=== PATIENT | female | born 1975 | race Caucasian/White ===

== ENCOUNTER 2024-10-09 10:19 | Outpatient (CLI) | payer MEDICAID, SELFPAY ==
--- OUTSIDE RECORDS SUMMARY | 2024-10-09 10:22 | XMS_ITS | Clinical Summary ---
Author Organization Healthcare Address [address] [place] [address] Care Team Providers Care Sales Systems Engineer Name Role Phone Juanpablo Wynn MD Primary Care Provider [phone] Allergies No known active allergies Medications amitriptyline (Elavil) 25 MG tablet Take 1 tablet (25 mg) by mouth 1 (one) time each day. 01/27/2024 Active cetirizine (ZyrTEC) 10 MG tablet Take 1 tablet (10 mg) by mouth 1 (one) time each day. 01/27/2024 Active Family History Medical History Relation Name Comments Cataracts Mother Relation Name Status Comments Mother Social History Tobacco Use Types Packs/Day Years Used Date Smoking Tobacco: Former Cigarettes 0.3 32 1 0 - 2021 Passive Smoke Exposure: Past Smokeless Tobacco: Never Tobacco Cessation:Counseling Given: Not Answered Alcohol Use Standard Drinks/Week Comments Yes 0 (1 standard drink = 0.6 oz pur e alcohol) Comments Unknown Sex and Gender Information Value Date Recorded Sex Assigned at Not on file Legal Sex Female 8:11 PM EDT Gender Identity Not on file Sexual Orientation Not on file Last Filed Vital Signs Vital Sign Reading Time Taken Comments Blood Pressure 122/85 01/09/2018 1:30 PM EDT Pulse 67 01/09/2018 1:30 PM EDT Temperature 36.9 C (98.5 F) 01/09/2018 1:30 PM EDT Respiratory Rate - - Oxygen Saturation - - Inhaled Oxygen Concentration - - Weight 74.6 kg (164 lb 7.4 oz) 01/09/2018 1:27 P M EDT Height 165.1 cm (5' 5 ) 01/09/2018 1:27 PM EDT Body Mass Index 27.37 01/09/2018 1:27 PM EDT Plan of Treatment Health Maintenance Due Date Last Done Comments [facility]-Depression Screening 1975 [facility]-HIV Screening 1975 [facility]-Infant/Child/Adol SDOH Screenings 1975 [facility]- SDOH Screenings 1993 [facility]-Adult SDOH Screenings 1993 [facility]-DTaP,Tdap,and Td Vaccine s (1 - Tdap) 1994 [facility]-Hepatitis B Vaccines (1 of 3 - 19+ 3-dose series) 1994 [facility]-Pap Smear 12/26/1998 12/27/1995 [facility]-Cervical Cancer Screening 2005 [facility]-HPV/Cotest 2005 12/27/1995 CT Colonography 2020 Colonoscopy 2020 FIT-DNA 2020 FIT 2020 FOBT 2020 Sigmoidoscopy 2020 [facility]-Colorectal Cancer Screening 2020 [id number] Vaccine (1 - 20 24-25 season) 2023 [facility]-Influenza Vaccine (Seaso n Ended) 2024 [facility]-Zoster Vaccines (1 of 2) 2025 [facility]-Hepatitis C Screening Completed 12/27/2021 HPV Vaccines Aged Out No longer eligi ble based on patient's age to complete this topic [facility]-HIB Vaccines Aged Out No longer e ligible based on patient's age to complete this topic [facility]-Hepatitis A Vaccines Aged Out No longer eligible based on patient's age to complete this topic [facility]-IPV Vaccines Aged Out No longer e ligible based on patient's age to complete this topic [facility]-Pneumococcal Vaccine: Pediatrics (0 to 5 Years) and At-Risk Patients (6 to 49 Years) Aged Out No long er eligible based on patient's age to complete this topic [facility]-Rotavirus Vaccines Aged Out No lo nger eligible based on patient's age to complete this topic Procedures Procedure Name Priority Date/Time Associated Diagnosis Comments CYTO DATA CONVERSION Routine 12/27/1995 12:00 AM EDT from Last 3 Months or Most Recently Relevant to Health Maintenance Results * Cytology (12/27/1995 12:00 AM EDT) 12/27/1995 12/31/1995 Narrative SUNQUEST - 01/03/1996 12:00 AM EDT [facility] MR #: [id number] [facility] YENNY DICK. 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 SATISFACTORY FOR INTERPRETATION. Electronically Signed Out By Melissa Galo ALEXANDRA Dorantes (ASCP) No Signature Required Cervical cytology is a screening test primarily for squamous cancers and precursors and has associated false negative and positive results. New technologies such as liquid based sampling may decrease but will not eliminate all false negative results. Regular screening and follow-up of unexplained clinical signs and symptoms are recommended to minimize false negative results. Please see the ASCCP website (www.asccp.org) for followup recommendations. If HPV testing was requested, correlation with the results is suggested (please call Microbiology at [phone] for results). CLINICAL INFORMATION: Menstrual History: {Not Provided} Date of Last Menstrual Period: {Not Provided} SPECIMEN DESCRIPTION: A: CERVICAL/VAGINAL SMEAR, PAP ICD: F: {Not Entered} SNOMED CODES: 1; [id number] In cases where a pathologist has signed out the report, the service has been rendered in part by a resident. The signing pathologist has performed and is responsible for the reported pathologic evaluation. us Historical Provider MD LAB PATHOLOGY ORDERABLES Final Result SUNQUEST from Last 3 Months or Most Recently Relevant to Health Maintenance Insurance [employer] Care Teams Sales Systems Engineer Relationship Specialty Start Date End Date Juanpablo Wynn MD [address] [address] PCP - General 09/09/20
--- OUTSIDE RECORDS SUMMARY | 2024-10-09 10:22 | XMS_ITS | Clinical Summary ---
Author Organization [facility] Address [address] [place] [id number] Phone CareEverywhereSuppor t@e|[email or web address] Care Team Providers Care Backup Administrator Name Role Phone Juanpablo Wynn MD Primary Care Provider [phone] Allergies No known active allergies Medications acetaminophen (TYLENOL) 325 MG tablet Take by mouth every 6 (six) hours if needed. Active cyclobenzaprine (FLEXERIL) 10 MG tabletIndicatio ns:Trapezius strain, right, subsequent encounter Take one half or one tablet by mouth at bedtime as needed for muscle spasm 20 tablet 09/19/2021 Active Active Problems No known active problems Social History Tobacco Use Types Packs/Day Years Used Date Smoking Tobacco: Every Day Cigarettes E-Cigarettes Smokeless Tobacco: Never Intimate Partner Violence Answer Date R ecorded Insults You Not on file 08/13/2020 Threatens You Not on file 08/13/2020 Screams at You Not on file 08/13/2020 Physically Hurt Not on file 08/13/2020 Intimate Partner Violence Score Not on file 08/13/2020 Depression Answer Date Recorded PHQ Total Score Not on file 12/02/2023 Stress Answer Date Recorded Stress in your Life 0 06/08/2020 Dealing with Stress Not on file 06/08/2020 Comments No Sex and Gender Information Value Date Recorded Sex Assigned at Not on file Legal Sex Female 3:35 PM USER EXPERIENCE ARCHITECT Gender Identity Not on file Sexual Orientation Not on file Last Filed Vital Signs Vital Sign Reading Time Taken Comments Blood Pressure 122/81 12/06/2021 7:02 PM EDT Pulse 62 12/06/2021 7:02 PM EDT Temperature 35.6 C (96.1 F) 12/06/2021 7:02 PM EDT Respiratory Rate 18 12/06/2021 7:02 PM EDT Oxygen Saturation 98% 12/06/2021 7:02 PM EDT Inhaled Oxygen Concentration - - Weight 77.3 kg (170 lb 6.4 oz) 10/25/2021 7:10 P M EDT Height 169 cm (5' 6.54 ) 10/25/2021 7:10 PM EDT Body Mass Index 27.06 10/25/2021 7:10 PM EDT Plan of Treatment Health Maintenance Due Date Last Done Comments Dental Cleaning/Exam 1975 Cervical Cancer Screening 1991 Hepatitis B Immunization (1 of 3 - 19+ 3-dose series) 1994 Tetanus Diphtheria and Pertu ssis Immunization (1 - Tdap) 1994 Breast Cancer Screening 2005 Colorectal Cancer Screening 2005 Covid-19 Immunization (1 - 2 -25 season) 2023 Influenza Immunization (Seas on Ended) 2024 HIB Immunization Aged Out No longer e ligible based on patient's age to complete this topic HPV Immunization Aged Out No longer e ligible based on patient's age to complete this topic Hepatitis A Immunization Aged Out No longer eligible based on patient's age to complete this topic Pneumococcal: Ped (0 to 5 Yr s) and At-Risk Member (6 to 64 Yrs) Aged Out No longer e ligible based on patient's age to complete this topic Polio Immunization Aged Out No longer eligible based on patient's age to complete this topic Insurance OPT OUT NO COPAY NB Care Teams Backup Administrator Relationship Specialty Start Date End Date Juanpablo Wynn MD [facility] [place] [address] PCP - General Internal Medicine 10/21/20"
--- NOTE | 2024-10-09 10:30 | MR_ITS ---
APPROVED REPORT Screw Machine Set Up Operator Tool: CLINICAL INDICATION Subaortic membrane evaluation vs. LVOT obstruction TECHNIQUE Image Acquisition: Cardiac magnetic resonance (CMR) was performed on Siemens Espree MRI 1.5T scanner. Software platform sequences were performed using the Siemens RxEye MR B19 platform. A set of three-plane, low-resolution, large btiul-td-oigu localizers were initially acquired. Then axial, coronal, sagittal TrueFISP, as well as axial HASTE images, were obtained. These were followed by gated TrueFISP breathold cinematic sequences obtained in the short axis with 8 mm slices and 2 mm gaps, 2-chamber (vertical long axis), 3-chamber, 4-chamber (horizontal long axis). A bolus of contrast was injected intravenously with first-pass sequences obtained in the short axis and four-chamber planes. After approximately 10 minutes, a TI core analysis operator sequence was performed to determine the optimal TI time. Using the optimized TI time, delayed contrast enhancement segmented inversion???recovery TurboFLASH sequences were obtained in the short axis, 2-chamber, 3-chamber, and 4-chamber projections. 2D-velocity phase mapping was performed. Functional parameters were calculated by offline analysis on an independent workstation ([employer] Imaging Platform, Telx). Contrast: ProHance??? (Gadoteridol) FINDINGS MORPHOLOGY AND FUNCTION Left ventricle: The left ventricle is normal in size. The indexed left ventricular end-diastolic volume (LVEDVi) is 65 ml/m2 (reference range 57-105 ml/m2 in males, 56-96 ml/m2 in females). Normal left ventricular systolic function is present. There is normal left ventricular wall thickness. Within the LVOT proximal to the AV level, there is a membranous protrusion present, that is resulting in accelerated LVOT gradients. In the absence of anatomic LVOT obstruction, this likely reflects the presence of subaortic membrane. There are no regional wall motion abnormalities noted. LVEF is calculated at 66.0% (reference range 57-77%). Right ventricle: The right ventricle is normal in size. The indexed right ventricular end-diastolic volume (RVEDVi) is 74 ml/m2 (reference range 61-121 ml/m2 in males, 48-112 ml/m2 in females). Normal right ventricular systolic function is present. RVEF is calculated at 65.0% (reference range 52-72% in males, 51-71% in females). Atria: The left atrium is mildly dilated. The maximum indexed left atrial volume is 37 ml/m2 (range 26-52 ml/m2 in males, 27-53 ml/m2 in females). The right atrium is normal in size. The maximum indexed right atrial volume is 25 ml/m2 (range 18-90 ml/m2). Aorta: The diameter of the aortic annulus is normal, measuring 23 mm (coronal view reference range 21-30 mm in males, 19-27 mm in females). The diameter of the aortic sinus is normal, measuring 33 mm (coronal view reference range 25-42 mm in males, 24-36 mm in females). The diameter of the sinotubular junction is normal, measuring 25 mm (coronal view reference range 18-32 mm in males, 18-28 mm in females). The diameters of the ascending and descending thoracic aorta are normal. Main pulmonary artery: The main pulmonary artery diameter is normal. Pericardium: The pericardial thickness is normal. The pericardial thickness measures 2.5 mm (normal < 4.0 mm). There is no pericardial effusion. VALVES The valvular morphologies in the visualized sequences appear normal. There is no systolic anterior motion of the mitral valve is not visualized. The aortic valve is trileaflet. Aortic valve area by 2D planimetry is 4.0 cm2. There is accelerated LVOT gradient proximally, as noted above. Peak velocities are underestimated on CMR. Ratio of pulmonary to systemic flow, Qp:Qs ratio = 1.12 (normal < or = 1.2, hemodynamically significant shunt > 1.5), demonstrating no evidence of hemodynamically significant shunt. TISSUE CHARACTERIZATION Resting Perfusion: Normal myocardial blood flow at rest. No evidence of resting hypoperfusion. Myocardial Fibrosis and/or edema: Normal gadolinium kinetics are present. No evidence of late gadolinium enhancement is noted, consistent with absence of myocardial scarring, infarction, or necrosis. T2-weighted imaging demonstrates no evidence of myocardial edema or inflammation. OTHER No other significant findings are noted. However, this exam is focused on the cardiac structure and function. IMPRESSION Normal LV size with normal LV systolic function. LVEDVi= 65 ml/m2 and LVEF= 66.0%. Normal LV wall thickness. No evidence of LVOT obstruction. No JOCY. Within the LVOT proximal to the AV level, there is a membranous protrusion present, that is resulting in accelerated LVOT gradients. In the absence of anatomic LVOT obstruction, this likely reflects the presence of subaortic membrane Normal RV size with normal RV systolic function. RVEDVi= 74 ml/m2 and RVEF= 65.0%. Mild LA dilation. No CMR evidence of myocardial scarring, infarction, or necrosis. No evidence of myocardial edema or inflammation. Perfusion analysis demonstrates normal blood flow at rest with no evidence of resting hypoperfusion. Ratio of pulmonary to systemic flow, Qp:Qs ratio = 1.12 (normal < or = 1.2, hemodynamically significant shunt > 1.5), demonstrating no evidence of hemodynamically significant shunt. This CMR demonstrates the presence of normal biventricular size and systolic function. No evidence of HCM or infiltrative cardiomyopathy. No evidence of JOCY. There is a membranous protrusion noted within the LVOT that is resulting in accelerated LVOT gradients. While a clear membrane is not visualized, the protrusion most likely represents subaortic membrane. Correlation with gradients on echocardiography is suggested to address further management. Clinical correlation is required. COMPARISON None CRITICAL RESULT None COMMUNICATION The above findings were relayed to the patient at the time of the routine outpatient cardiology follow-up visit, prior to dictation of this report. The findings of this cardiac MR were reviewed, reported, and signed by Osman Garcia MD (Debt Recovery Officer). Conclusion Electronically signed by : Debbie Garcia MD 10/27/2024 01:17:50
[2024-10-09] MEDS: 0.9 % SODIUM CHLORIDE 50 ML VIAL 20 ML IV (11:17)
[2024-10-09] MEDS: GADOTERIDOL INJ 20ML SYRINGE 18 ML IV (11:17)
[2024-10-09] MEDS: SODIUM CHLORIDE 0.9% 10ML SYR (RAD ONLY) 10 ML IV (11:17)
== END 2024-10-09 23:59 | disposition home or self-care (01) ==
LOC: RAD 10:20
PROVIDERS: PCP Nurse Practitioner Family; Visit Provider Nurse Practitioner Family
DX: Q24.4 Congenital subaortic stenosis (principal); I51.7 Cardiomegaly
CPT/HCPCS: 75561; A9576

== ENCOUNTER 2024-11-20 08:42 | Outpatient (CLI) | payer MEDICAID, SELFPAY ==
--- OUTSIDE RECORDS SUMMARY | 2024-10-23 11:30 | XMS_ITS | Encounter Summary ---
Author Organization [facility] Address [address] [place] [address] Care Team Providers Care Gluing Machine Operator Name Role Phone Xochitl Johnson Mark BUTT Primary Care Provi kaylie Reason for Referral * Durable Medical Equipment (Routine) - Authorized Specialty Diagnoses / Procedures Referred By Contac t Referred To Contact Diagnoses MARJAN (obstructive sleep apnea) Procedures PAP Therapy Marichuy Matthews APRN [address] [place] [address] [place] [address] Phone: tel: fax: [place] [address] Phone: tel: fax: Referral ID Status Reason Start Date Expiration Date V isits Requested Visits Authorized [id number] Authorized 10/23/2024 01/22/2026 1 1 Reason for Visit * Reason Comments Follow-up Encounter Details Date Type Department Care Team (Late st Contact Info) Description 10/23/2024 11:30 AM EDT Office Visit [facility] [address] [place] [phone] Marichuy Matthews APRN [address] [place] [address] [place] [address] MARJAN (obstructive sleep apnea) (Primary Dx) Social History Tobacco Use Types Packs/Day Years Used Date Smoking Tobacco: Former Cigarettes Smokeless Tobacco: Never Alcohol Use Standard Drinks/Week Comments Not Currently 0 (1 standard drink = 0.6 oz pur e alcohol) PHQ-2 Answer Date Recorded Retired PHQ-9: Brief Depression Severity Measure Score 0 06/11/2022 PHQ-2 Answer Date Recorded Retired PHQ-9: Brief Depression Severity Measure Score 0 10/28/2023 Comments Unknown Sex and Gender Information Value Date Recorded Sex Assigned at Not on file Legal Sex Female 11:45 AM EDT Gender Identity Not on file Sexual Orientation Not on file documented as of this encounter Last Filed Vital Signs Vital Sign Reading Time Taken Comments Blood Pressure 116/72 10/23/2024 11:52 AM EDT Pulse 76 10/23/2024 11:52 AM EDT Temperature - - Respiratory Rate - - Oxygen Saturation 98% 10/23/2024 11:52 AM EDT Inhaled Oxygen Concentration - - Weight 83 kg (183 lb) 10/23/2024 11:52 AM EDT Height 165.1 cm (5' 5 ) 10/23/2024 11:52 AM EDT Body Mass Index 30.45 10/23/2024 11:52 AM EDT documented in this encounter Progress Notes * Marichuy Matthews APRN - 10/23/2024 4:20 PM EDTAssociated Problem(s): MARJAN (obstructive sleep apnea) Patient has a baseline AHI 5 that increases to 8 in supine. This is mild sleep apnea. Treatment options have been discussed with patient. Sleep risk and hygiene have been reviewed. Patient verbalizesunderstanding. Patient wishes to proceed with CPAP therapy. Prescription sent to DME of patient choice for new ResMed auto CPAP 6-14 cm with Pap supplies. Maskfit please. Follow-up in 8 weeks. * Marichuy Matthews APRN - 10/23/2024 11:30 AM EDT Images from the original note were not included. [facility] Provider Note Date: 10/23/2024 Name: Yenny ENG : 1975 PCP: Xochitl Johnson APRN Chief Complaint Patient presents with Follow-up Subjective History of Present Illness Yenny ENG is a 49 y.o. female who presents today for follow up sleep testing. Patient states she longer wants to be seen by us for cardiology. She has to family members that work for cardiology at [facility] and will do all of her other testing with them. She states she will continueto follow with us for her sleep apnea. We have reviewed her PSG which showed her mild sleep apnea. Treatment options such as dental guard,DP3, and CPAP therapy have been discussed. Patient's baseline AHI is too low to be considered for Inspire. Sleep risk such as sleep , blood clots, heart attack, stroke, atrial fibrillation and hypertension have been discussed. Sedating medications such as opioids benzodiazepines, and alcohol may worsen sleep apnea. Sleep hygiene such as side-lying sleep and weight loss may improve apnea episodes. Patient wishes to proceed with CPAP therapy. Cardiac History: 10/08/24 PSG Baseline AHI 5 WOJCIECH 09/08/24 Subaortic membrane or extremely eccentric left ventricular hypertrophy with slight protrusion into the left ventricular outflow tract. This is not causing any obstructive gradient. Echo 08/21/24 Left ventricular ejection fraction appears to be 66 - 70%. ?? Left ventricular wall thickness is consistent with hypertrophy. ?? Possible subaortic membrane without obstruction, recommend correlation with WOJCIECH or CMRI ?? Systolic anterior motion of the anterior mitral leaflet is present. Estimated right ventricular systolic pressure from tricuspid regurgitation is normal (<35 mmHg). Holter Monitor 07/24/24 A normal monitor study. ?? 1% PVCs. No significant pauses or arrhythmias. Allergies Allergen Reactions Nitroglycerin Anaphylaxis Current Outpatient Medications: albuterol sulfate HFA 108 (90 Base) MCG/ACT inhaler, Inhale 2 puffs Every 4 (Four) Hours As Needed for Wheezing or Shortness of Air., Disp: 18 g, Rfl: 2 amitriptyline (ELAVIL) 25 MG tablet, Take 1 tablet by mouth Every Night., Disp: 30 tablet, Rfl: 0 cetirizine (zyrTEC) 10 MG tablet, Take 1 tablet by mouth Daily., Disp: 30 tablet, Rfl: 0 FLOOR DIRECTOR Thyroid 30 MG tablet, Take 1 tablet by mouth Daily., Disp: , Rfl: Past Medical History: Diagnosis Date Beta 0 thalassemia Past Surgical History: Procedure Laterality Date EYE SURGERY Tear duct opening at age 2 HERNIA REPAIR 11/09/2000 umblical hernia SHOULDER ARTHROSCOPY Right Family History Problem Relation Age of Onset Lupus Mother Kidney disease Father Hypertension Father Heart disease Father Social History Socioeconomic History Marital status: Single Tobacco Use Smoking status: Former Types: Cigarettes Smokeless tobacco: Never Vaping Use Vaping status: Every Day Substances: Nicotine Devices: Pre-filled or refillable cartridge Passive vaping exposure: Yes Substance and Sexual Activity Alcohol use: Not Currently Drug use: Never Sexual activity: Yes Objective Vital Signs: BP 116/72 Pulse 76 Ht 165.1 cm (65 ) Wt 83 kg (183 lb) SpO2 98% BMI 30.45 kg/m?? Estimated body mass index is 30.45 kg/m?? as calculated from the following: Height as of this encounter: 165.1 cm (65 ). Weight as of this encounter: 83 kg (183 lb). Physical Exam Constitutional: Appearance: Normal appearance. She is obese. Neurological: General: No focal deficit present. Mental Status: She is alert and oriented to person, place, and time. Psychiatric: Mood and Affect: Mood normal. Behavior: Behavior normal. Thought Content: Thought content normal. Judgment: Judgment normal. The following data was reviewed by: Marichuy Matthews APRN on 10/23/2024: PSG has been reviewed. Assessment and Plan Diagnoses and all orders for this visit: 1. MARJAN (obstructive sleep apnea) (Primary) Assessment & Plan: Patient has a baseline AHI 5 that increases to 8 in supine. This is mild sleep apnea. Treatment options have been discussed with patient. Sleep risk and hygiene have been reviewed. Patient verbalizesunderstanding. Patient wishes to proceed with CPAP therapy. Prescription sent to DME of patient choice for new ResMed auto CPAP 6-14 cm with Pap supplies. Maskfit please. Follow-up in 8 weeks. Orders: - PAP Therapy Recommendations: Report if any new/changing symptoms immediately, Sleep risks reviewed (driving, medical, sleep , sedating agents), and Sleep hygiene discussed Follow Up Return in about 8 years (around 10/23/2032) for MARJAN Compliance. Patient was given instructions and counseling regarding her condition or for health maintenance advice. Please see specific information pulled into the AVS if appropriate. documented in this encounter Plan of Treatment Upcoming Encounters Date Type Department Care Team (Late st Contact Info) Description 12/18/2024 10:30 AM EDT Office Visit [facility] [address] [place] [phone] Marichuy Matthews, SUPPLY TEACHER [address] [place] [address] documented as of this encounter Visit Diagnoses Diagnosis MARJAN (obstructive sleep apnea)- Primary Obstructive sleep apnea (adult) (pediatric) documented in this encounter Care Teams Gluing Machine Operator Relationship Specialty Start Date End Date Xochitl Johnson, FILOMENA [address] [place] [address] PCP - General Nurse Practitioner 07/22/24 documented as of this encounter
--- OUTSIDE RECORDS SUMMARY | 2024-11-20 08:45 | XMS_ITS | Clinical Summary ---
Author Organization Healthcare Address [address] [place] [address] Care Team Providers Care Auto Hiker Name Role Phone Juanpablo Wynn MD Primary Care Provider [phone] Allergies No known active allergies Medications amitriptyline [...] 2020 Sigmoidoscopy 2020 [facility]-Colorectal Cancer Screening 2020 QIN-XSPER-82 Vaccine (1 - 20 24-25 season) 2023 [facility]-Influenza Vaccine (#1) 2024 [facility]-Zoster Vaccines (1 of 2) 2025 [...] Narrative SUNQUEST - 01/03/1996 12:00 AM EDT [facility] MR #: [id number] [facility] [address] [place] [id number] (Age: 20) FW Collect Date: 12/27/1995 00:00 Receipt Date: 12/31/1995 00:00 Page 1 DEPARTMENT OF PATHOLOGY AND LABORATORY MEDICINE CYTOPATHOLOGY REPORT Email: [email or web address] [phone] * Converted Case * This report may not match the original report format ATTENDING MD/Practitioner: Ortiz Gomez MD Service: ECOLOGICAL TECHNICAL OFFICER Location: Reported: 01/03/1996 00:00 Collected: 12/27/1995 00:00 [...] results is suggested (please call Microbiology at [phone] for results). CLINICAL INFORMATION: Menstrual History: {Not Provided} Date of Last Menstrual Period: {Not Provided} SPECIMEN DESCRIPTION: A: CERVICAL/VAGINAL SMEAR, PAP ICD: F: {Not Entered} SNOMED CODES: 1; [id number] In cases where a pathologist has signed out the report, the service has been rendered in part by a resident. The signing pathologist has performed and is responsible for the reported pathologic evaluation. us Historical Provider MD LAB PATHOLOGY ORDERABLES Final Result SUNQUEST from Last 3 Months or Most Recently Relevant to Health Maintenance Insurance [employer] Care Teams Auto Hiker Relationship Specialty Start Date End Date Juanpablo Wynn MD [address] [address] PCP - General 09/09/20
--- OUTSIDE RECORDS SUMMARY | 2024-11-20 08:45 | XMS_ITS | Clinical Summary ---
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
--- OUTSIDE RECORDS SUMMARY | 2024-11-20 08:45 | XMS_ITS | Data Portability ---
Author Organization [facility] AD[facility] Address [address] [place] [id number] Care Team Providers Care Airborne Electronics Analyst Name Role Phone BEN POZO Orthopedic Surgeon NATE PANTOJA Primary Care Provider [phone] Assessment Encounter Date Assessment Date Assessment LastModified by Organization Details LastModified Time 12/03/2023 12/03/2023 Patient had lab work from October that was completed by previous primary care provider, reviewed with patient, recheck CBC with iron studies and B12 and folic acid due to hemoglobin dropping from over 12-10. Denies any bleeding or bruising dimitrisburgey Not available 12/03/2023 15:15:35 08/28/2024 08/28/2024 will request records from Cardiology due to reporting sleep study, echo, Holter monitor zaria Not available 08/28/2024 14:05:35 Plan of Treatment Reminders Order Date Submit Date Provider Last Modified By Organization Details Last Modified Time Details Appointments None recorded. Lab TSH + free T4, serum [address] (Laboratory), [address] [place] [address] [place], [address], 5 07:34:06 hemoglobin A1c + average glucose, QN, blood [address] (Laboratory), [address] [place] [address] [place], [address], 5 07:34:06 amylase + lipase, serum [address] (Laboratory), [address] [place], [address], 5 07:34:07 CMP, serum or plasma 2024 [facility] (Laboratory), [address] [place], [address], 5 13:28:23 insulin, serum 2024 [facility] (Laboratory), [address] [place], [address], 5 14:11:09 C-peptide, serum [address] (Laboratory), [address] [place], [address], 5 07:34:07 YANA (antinucle ar antibodies ) titer + pattern, ifa, serum [address] [place] [address] (Laboratory), [address] [place], [address], 5 08:40:19 ESR (erythrocy te sedimentat ion rate), blood 2024 [facility] (Laboratory), [address] [place], [address], 5 17:20:23 uric acid, serum or plasma [address] [place] [address] (Laboratory), [address] [place], [address], 5 16:56:34 C reactive protein, QN, serum or plasma [address] [place] [address] (Laboratory), [address] [place], [address], 5 08:40:19 rf (rheumatoi d factor) + anti-ccp abs, serum [address] (Laboratory), [address] [place], [address], 5 08:40:19 vitamin D, 25-hydroxy , total, serum [address] (Laboratory), [address] [place], [address], 5 08:40:19 CMP, serum or plasma 2024 025 [facility] (Laboratory), [address] [place], [address], 5 16:55:28 CBC w/ auto diff 2024 025 [facility] (Laboratory), [address] [place], [address], 5 16:04:47 magnesium, serum or plasma 2024 025 [facility] (Laboratory), [address] [place], [address], 5 16:55:30 vitamin B12 + folate, serum or blood [address] (Laboratory), [address] [place], [address], 5 08:40:18 TSH + free T4, serum [address] (Laboratory), [address] [place], [address], 5 08:40:18 iron + TIBC + ferritin, serum [address] (Laboratory), [address] [place], [address], 5 08:40:18 TSH, serum or plasma 2023 024 [facility] (Laboratory), [address] [place], [address], 4 17:06:29 T3, total, serum 2023 024 [facility] (Laboratory), [address] [place], [address], 4 11:14:51 T4, total, serum [address] (Laboratory), [address] [place], [address], 4 07:42:43 thyroid panel, serum 2023 024 [facility] (Laboratory), [address] [place], [address], 4 17:06:30 urinalysis , dipstick [address] [facility], [address] [place] [address] [place], [address], 4 16:53:44 CBC w/ auto diff 2023 024 [facility] (Laboratory), [address] [place], [address], 4 16:35:30 iron + TIBC + ferritin, serum [address] (Laboratory), [address] [place], [address], 4 08:25:28 vitamin B12 + folate, serum or blood [address] (Laboratory), [address] [place], [address], 4 08:25:[address] referral 2024 025 [email or web address] Hanna Pozo MD, [address] [place], [address], 5 09:53:[address] referral 2024 025 beto Pozo MD, [address], [place], [address], 5 09:53:11 Procedures None recorded. Surgeries None recorded. Imaging home sleep study [address] (Scheduling), [address] [place], [address], 5 14:52:37 electrocar diogram 2024 025 [facility], [address] [place], [address], 5 16:32:16 US, thyroid 2023 024 [facility] (Scheduling), [address] [place], [address], 4 21:00:43 MRI, brain, w/o contrast 2023 024 [facility] (Scheduling), [address] [place], [address], 4 10:11:18 MAMMO, screening, digital, bilateral 2023 024 [facility] (Scheduling), [address] [place], [address], 4 14:13:46 Medication Orders cetirizine 10 mg tablet 2024 [address] [facility], [address] [place], [address], 15:31:45 meclizine 25 mg tablet 2023 024 [facility], [address] [place], [address], 13:05:28 Patient TargetsNo targets recorded. Patient Instructions Encounter Date Encounter Id Patient Instructions Last Modified By Organization Details Last Modified Time 07/14/2024 [id number] complete PFT w/ post bronchodilator spirometry* [email or web address] Not available 08/11/2024 09:11:50 Reason for Referral Fill Manager Referral for Ne ar syncope Referring Physician: Nate Pantoja [facility], Encounter Date: 07/14/2024 Fill Manager Referral for El ectrocardiogram abnormal Referring Physician: Nate Pantoja [facility], Encounter Date: 07/14/2024 Results Created Date Observation Date Name Description Value Unit Range Abnormal Flag Note LastModifiedBy Organization Detail LastModifiedTime 12/03/19 24 12/03/2023 CBC AUTO W DIFF WBC 5.6 10 4.5-11 .5 Not Available [facility] (Lab Registration) [address] [place], [address], 12/03/2023 16:35:30 12/03/19 24 12/03/2023 CBC AUTO W DIFF RBC 5.61 10 4.25-5 .57 high Not Available [facility] (Lab Registration) [address] [place], [address], 12/03/2023 16:35:30 12/03/19 24 12/03/2023 CBC AUTO W DIFF HGB 11.2 g/dL 12.0-1 5.7 low Not Available [facility] (Lab Registration) [address] [place], [address], 12/03/2023 16:35:30 12/03/19 24 12/03/2023 CBC AUTO W DIFF HCT 35.4 % 36.0-4 7.0 low Not Available [facility] (Lab Registration) [address] [place], [address], 12/03/2023 16:35:30 12/03/19 24 12/03/2023 CBC AUTO W DIFF MCV 63.1 fL 80-95 low Not Available [facility] (Lab Registration) [address] [place], [address], 12/03/2023 16:35:30 12/03/19 24 12/03/2023 CBC AUTO W DIFF MCH 20.0 pg 27.0-3 4.0 low Not Available [facility] (Lab Registration) [address] [place], [address], 12/03/2023 16:35:30 12/03/19 24 12/03/2023 CBC AUTO W DIFF MCHC 31.6 g/dL 32.0-3 6.0 low Not Available [facility] (Lab Registration) [address] [place], [address], 12/03/2023 16:35:30 12/03/19 24 12/03/2023 CBC AUTO W DIFF platelet count 229 10 150-45 0 Not Available [facility] (Lab Registration) [address] [place], [address], 12/03/2023 16:35:30 12/03/19 24 12/03/2023 CBC AUTO W DIFF RDW 14.9 % 12.3-1 5.1 Not Available [facility] (Lab Registration) [address] [place], [address], 12/03/2023 16:35:30 12/03/19 24 12/03/2023 CBC AUTO W DIFF MPV 10.4 fL 7.4-10 .4 Not Available [facility] (Lab Registration) [address] [place], [address], 12/03/2023 16:35:30 12/03/19 24 12/03/2023 CBC AUTO W DIFF granulocyte% 58.6 % 40-75 Not Available [facility] (Lab Registration) [address] [place], [address], 12/03/2023 16:35:30 12/03/19 24 12/03/2023 CBC AUTO W DIFF lymphocyte% 31.4 % 15-57 Not Available [facility] (Lab Registration) [address] [place], [address], 12/03/2023 16:35:30 12/03/19 24 12/03/2023 CBC AUTO W DIFF monocyte% 6.8 % 4.0-12 .0 Not Available [facility] (Lab Registration) [address] [place], [address], 12/03/2023 16:35:30 12/03/19 24 12/03/2023 CBC AUTO W DIFF eosinophil% 2.5 % 0.0-4. 0 Not Available [facility] (Lab Registration) [address] [place], [address], 12/03/2023 16:35:30 12/03/19 24 12/03/2023 CBC AUTO W DIFF basophil% 0.5 % 0.0-1. 0 Not Available [facility] (Lab Registration) [address] [place], [address], 12/03/2023 16:35:30 12/03/19 24 12/03/2023 CBC AUTO W DIFF immature granulocytes % 0.2 % 0.0-0. 8 Not Available [facility] (Lab Registration) [address] [place], [address], 12/03/2023 16:35:30 12/03/19 24 12/03/2023 CBC AUTO W DIFF granulocyte# 3.27 10 Not Available [facility] (Lab Registration) [address] [place], [address], 12/03/2023 16:35:30 12/03/19 24 12/03/2023 CBC AUTO W DIFF lymphocyte# 1.75 10 Not Available [facility] (Lab Registration) [address] [place], [address], 12/03/2023 16:35:30 12/03/19 24 12/03/2023 CBC AUTO W DIFF monocyte# 0.38 10 Not Available [facility] (Lab Registration) [address] [place], [address], 12/03/2023 16:35:30 12/03/19 24 12/03/2023 CBC AUTO W DIFF eosinophil# 0.14 10 Not Available [facility] (Lab Registration) [address] [place], [address], 12/03/2023 16:35:30 12/03/19 24 12/03/2023 CBC AUTO W DIFF basophil# 0.03 10 Not Available [facility] (Lab Registration) [address] [place], [address], 12/03/2023 16:35:30 12/03/19 24 12/03/2023 CBC AUTO W DIFF immature granulocytes # 0.01 10 Not Available [facility] (Lab Registration) [address] [place], [address], 12/03/2023 16:35:30 12/03/19 24 12/03/2023 CBC AUTO W DIFF manual differential NO Not Available [facility] (Lab Registration) [address] [place], [address], 12/03/2023 16:35:30 12/03/19 24 12/03/2023 CBC AUTO W DIFF note Unles s other gilbert noted testi ng perfo rmed at: [facility] [place] [address] [phone] Douglas joe MD CLIA: [id number] Not Available [facility] (Lab Registration) [address] [place], [address], 12/03/2023 16:35:30 12/03/19 24 12/03/2023 VITAM IN B12 vitamin B12 279 pg/mL 193-98 6 Not Available [facility] (Lab Registration) [address], [place], [address], 12/03/2023 17:18:09 12/03/19 24 12/03/2023 VITAM IN B12 folate (folic acid), serum 9.4 NG/mL 8.6-58 .9 Not Available [facility] (Lab Registration) [address], [place], [address], 12/03/2023 17:18:09 12/03/19 24 12/03/2023 VITAM IN B12 note Wanderes s other gilbert noted testi ng perfo rmed at: [facility] [address] [place] [address] [phone] Douglas joe MD CLIA: [id number] Not Available [facility] (Lab Registration) [address] [place] [place], [address], 12/03/2023 17:18:09 12/03/19 24 12/03/2023 JUAN TIN ferritin 277 NG/mL 8-388 Not Available [facility] (Lab Registration) [address] [place], [address], 12/03/2023 17:20:18 12/03/19 24 12/03/2023 JUAN TIN note Unles s other gilbert noted testi ng perfo rmed at: [facility] [address] [place] [address] [phone] Douglas joe MD CLIA: [id number] Not Available [facility] (Lab Registration) [address] [place], [address], 12/03/2023 17:20:18 12/03/19 24 12/03/2023 IRON/ TIBC/ %SAT (IRON STUDI ES) iron 118 ug/dL 35-150 Not Available [facility] (Lab Registration) [address] [place], [address], 12/03/2023 17:21:26 12/03/19 24 12/03/2023 IRON/ TIBC/ %SAT (IRON STUDI ES) total iron bind cap (TIBC) 264 ug/dL 250-45 0 Not Available [facility] (Lab Registration) [address] [place], [address], 12/03/2023 17:21:26 12/03/19 24 12/03/2023 IRON/ TIBC/ %SAT (IRON STUDI ES) % saturation 45 % 15-55 Not Available [facility] (Lab Registration) [address] [place], [address], 12/03/2023 17:21:26 12/03/19 24 12/03/2023 IRON/ TIBC/ %SAT (IRON STUDI ES) note Unles s other gilbert noted testi ng [facility] [address] [place] [address] [phone] Douglas joe MD CLIA: [id number] Not Available [facility] (Lab Registration) [address] [place], [address], 12/03/2023 17:21:26 12/03/19 24 12/03/2023 urina lysis , dipst ick Leukocytes (reference range) negati ve Not Available [facility] [address] [place], [address], 12/03/2023 14:32:01 12/03/19 24 12/03/2023 urina lysis , dipst ick Nitrite (reference range:) negati ve Not Available [facility] [address] [place], [address], 12/03/2023 14:32:01 12/03/19 24 12/03/2023 urina lysis , dipst ick Urobilinogen (reference range) 0.2 Not Available [address] [place], [address], 12/03/2023 14:32:01 12/03/19 24 12/03/2023 urina lysis , dipst ick Protein (reference range) negati ve Not Available [address] [place], [address], 12/03/2023 14:32:01 12/03/19 24 12/03/2023 urina lysis , dipst ick pH (reference range 5-8.5) 5.0 Not Available [address] [place], [address], 12/03/2023 14:32:01 12/03/19 24 12/03/2023 urina lysis , dipst ick Blood (reference range:) negati ve Not Available [address] [place], [address], 12/03/2023 14:32:01 12/03/19 24 12/03/2023 urina lysis , dipst ick Specific [place] (reference range) 1.030 Not Available [address] [place], [address], 12/03/2023 14:32:01 12/03/19 24 12/03/2023 urina lysis , dipst ick Ketone (reference range) negati ve Not Available [address] [place], [address], 12/03/2023 14:32:01 12/03/19 24 12/03/2023 urina lysis , dipst ick Bilirubin (reference range) negati ve Not Available [address] [place], [address], 12/03/2023 14:32:01 12/03/19 24 12/03/2023 urina lysis , dipst ick Glucose (reference range) negati ve Not Available [place] [address] [place], [address], 12/03/2023 14:32:01 12/03/19 24 12/03/2023 urina lysis , dipst ick Color (reference range: yellow-brown ) Yellow Not Available [place] [address] [place], [address], 12/03/2023 14:32:01 01/06/20 24 01/06/2024 THYRO ID STIMU LATIN G HORMO NE thyroid stimulating hormone 9.29 mIU/m L 0.34-4 .80 high Not Available [facility] (Lab Registration) [address] [place], [address], 01/06/2024 17:06:28 01/06/20 24 01/06/2024 THYRO ID STIMU LATIN G HORMO NE note Unles s other gilbert noted testi ng perfo rmed at: [facility] [address] [address] [phone] Douglas joe MD CLIA: [id number] Not Available [facility] (Lab Registration) [address] [place], [address], 01/06/2024 17:06:28 01/06/20 24 01/06/2024 THYRO ID PANEL (T3U/ T4/FT I) T3 uptake 33 % 30-40 Not Available [facility] (Lab Registration) [address] [place], [address], 01/06/2024 17:06:30 01/06/20 24 01/06/2024 THYRO ID PANEL (T3U/ T4/FT I) T4 total 7.1 ug/dL 4.8-13 .9 Not Available [facility] (Lab Registration) [address] [place], [address], 01/06/2024 17:06:30 01/06/20 24 01/06/2024 THYRO ID PANEL (T3U/ T4/FT I) free thyroxine index (T7) 2.3 1.6-3. 7 Not Available [facility] (Lab Registration) [address] [place], [address], 01/06/2024 17:06:30 01/06/20 24 01/06/2024 THYRO ID PANEL (T3U/ T4/FT I) note Unles s other gilbert noted testi ng perfo rmed at: [facility] [address] [place] [address] [phone] Douglas joe MD CLIA: [id number] Not Available [facility] (Lab Registration) [address] [place], [address], 01/06/2024 17:06:30 01/06/20 24 01/06/2024 T4 FREE T4,free 0.74 NG/dL 0.76-1 .46 low Effec tive today 013 new Refer ence Range . Not Available [facility] (Lab Registration) [address] [place], [address], 01/06/2024 17:22:55 01/06/20 24 01/06/2024 T4 FREE note Unles s other gilbert noted testi ng perfo rmed at: [facility] [address] [place] [phone] Douglas joe MD CLIA: [id number] Not Available [facility] (Lab Registration) [address] [place], [address], 01/06/2024 17:22:55 01/06/20 24 01/06/2024 T3 TOTAL note Unles s other gilbert noted testi ng perfo rmed at: [facility] [address] [place] [phone] Douglas joe MD CLIA: [id number] Not Available [facility] (Lab Registration) [address] [place], [address], 01/07/2024 11:14:51 01/06/20 24 01/07/2024 T3 TOTAL T3 total 107 NG/dL 71-180 Perfo rmed at: [place] [address] 126 Lab Direc tor: Cristofer toribio PhD, Phone : [phone] SENT TO REFER ENCE LAB Not Available [facility] (Lab Registration) [address] [place], [address], 01/07/2024 11:14:51 07/15/19 25 07/14/2024 CBC AUTO W DIFF WBC 5.5 10 4.5-11 .5 Not Available [facility] (Lab Registration) [address] [place], [address], 07/14/2024 16:04:47 07/15/19 25 07/14/2024 CBC AUTO W DIFF RBC 5.80 10 4.25-5 .57 high Not Available [facility] (Lab Registration) [address] [place], [address], 07/14/2024 16:04:47 07/15/19 25 07/14/2024 CBC AUTO W DIFF HGB 11.3 g/dL 12.0-1 5.7 low Not Available [facility] (Lab Registration) [address] [place], [address], 07/14/2024 16:04:47 07/15/19 25 07/14/2024 CBC AUTO W DIFF HCT 36.3 % 36.0-4 7.0 Not Available [facility] (Lab Registration) [address] [place], [address], 07/14/2024 16:04:47 07/15/19 25 07/14/2024 CBC AUTO W DIFF MCV 62.6 fL 80-95 low Not Available [facility] (Lab Registration) [address] [place], [address], 07/14/2024 16:04:47 07/15/19 25 07/14/2024 CBC AUTO W DIFF MCH 19.5 pg 27.0-3 4.0 low Not Available [facility] (Lab Registration) [address] [place], [address], 07/14/2024 16:04:47 07/15/19 25 07/14/2024 CBC AUTO W DIFF MCHC 31.1 g/dL 32.0-3 6.0 low Not Available [facility] (Lab Registration) [address] [place], [address], 07/14/2024 16:04:47 07/15/19 25 07/14/2024 CBC AUTO W DIFF platelet count 236 10 150-45 0 Not Available [facility] (Lab Registration) [address] [place], [address], 07/14/2024 16:04:47 07/15/19 25 07/14/2024 CBC AUTO W DIFF RDW 15.1 % 12.3-1 5.1 Not Available [facility] (Lab Registration) [address] [place], [address], 07/14/2024 16:04:47 07/15/19 25 07/14/2024 CBC AUTO W DIFF MPV 10.0 fL 7.4-10 .4 Not Available [facility] (Lab Registration) [address] [place], [address], 07/14/2024 16:04:47 07/15/19 25 07/14/2024 CBC AUTO W DIFF granulocyte% 56.6 % 40-75 Not Available [facility] (Lab Registration) [address] [place], [address], 07/14/2024 16:04:47 07/15/19 25 07/14/2024 CBC AUTO W DIFF lymphocyte% 32.7 % 15-57 Not Available [facility] (Lab Registration) [address], [place], [address], 07/14/2024 16:04:47 07/15/19 25 07/14/2024 CBC AUTO W DIFF monocyte% 7.1 % 4.0-12 .0 Not Available [facility] (Lab Registration) [address] [place], [address], 07/14/2024 16:04:47 07/15/19 25 07/14/2024 CBC AUTO W DIFF eosinophil% 2.9 % 0.0-4. 0 Not Available [facility] (Lab Registration) [address] [place], [address], 07/14/2024 16:04:47 07/15/19 25 07/14/2024 CBC AUTO W DIFF basophil% 0.5 % 0.0-1. 0 Not Available [facility] (Lab Registration) [address] [place], [address], 07/14/2024 16:04:47 07/15/19 25 07/14/2024 CBC AUTO W DIFF immature granulocytes % 0.2 % 0.0-0. 8 Not Available [facility] (Lab Registration) [address] [place], [address], 07/14/2024 16:04:47 07/15/19 25 07/14/2024 CBC AUTO W DIFF granulocyte# 3.10 10 Not Available [facility] (Lab Registration) [address] [place], [address], 07/14/2024 16:04:47 07/15/19 25 07/14/2024 CBC AUTO W DIFF lymphocyte# 1.79 10 Not Available [facility] (Lab Registration) [address] [place], [address], 07/14/2024 16:04:47 07/15/19 25 07/14/2024 CBC AUTO W DIFF monocyte# 0.39 10 Not Available [facility] (Lab Registration) [address], [place], [address], 07/14/2024 16:04:47 07/15/19 25 07/14/2024 CBC AUTO W DIFF eosinophil# 0.16 10 Not Available [facility] (Lab Registration) [address] [place], [address], 07/14/2024 16:04:47 07/15/19 25 07/14/2024 CBC AUTO W DIFF basophil# 0.03 10 Not Available [facility] (Lab Registration) [address] [place], [address], 07/14/2024 16:04:47 07/15/19 25 07/14/2024 CBC AUTO W DIFF immature granulocytes # 0.01 10 Not Available [facility] (Lab Registration) [address] [place], [address], 07/14/2024 16:04:47 07/15/19 25 07/14/2024 CBC AUTO W DIFF manual differential NO Not Available [facility] (Lab Registration) [address], [place], [address], 07/14/2024 16:04:47 07/15/19 25 07/14/2024 CBC AUTO W DIFF note Unles s other gilbert noted testi ng perfo rmed at: [facility] [address] [place] [address] [phone] Douglas joe MD CLIA: [id number] Not Available [facility] (Lab Registration) [address] [place], [address], 07/14/2024 16:04:47 07/15/19 25 07/14/2024 IRON/ TIBC/ %SAT (IRON STUDI ES) iron 116 ug/dL 35-150 Not Available [facility] (Lab Registration) [address] [place], [address], 07/14/2024 16:22:23 07/15/19 25 07/14/2024 IRON/ TIBC/ %SAT (IRON STUDI ES) total iron bind cap (TIBC) 315 ug/dL 250-45 0 Not Available [facility] (Lab Registration) [address] [place], [address], 07/14/2024 16:22:23 07/15/19 25 07/14/2024 IRON/ TIBC/ %SAT (IRON STUDI ES) % saturation 37 % 15-55 Not Available [facility] (Lab Registration) [address], [place], [address], 07/14/2024 16:22:23 07/15/19 25 07/14/2024 IRON/ TIBC/ %SAT (IRON STUDI ES) note Unles s other gilbert noted testi ng perfo rmed at: [facility] [address] [place] [address] [phone] Douglas joe MD CLIA: [id number] Not Available [facility] (Lab Registration) [address] [place], [address], 07/14/2024 16:22:23 07/15/19 25 07/14/2024 COMP METAB OLIC PANEL sodium 140 mmol/ L 136-14 5 Not Available [facility] (Lab Registration) [address] [place], [address], 07/14/2024 16:55:28 07/15/19 25 07/14/2024 COMP METAB OLIC PANEL potassium 3.7 mmol/ L 3.5-5. 1 Not Available [facility] (Lab Registration) [address] [place], [address], 07/14/2024 16:55:28 07/15/19 25 07/14/2024 COMP METAB OLIC PANEL chloride 105 mmol/ L 98-107 Not Available [facility] (Lab Registration) [address] [place], [address], 07/14/2024 16:55:28 07/15/19 25 07/14/2024 COMP METAB OLIC PANEL carbon dioxide 27 mmol/ L 21-32 Not Available [facility] (Lab Registration) [address] [place], [address], 07/14/2024 16:55:28 07/15/19 25 07/14/2024 COMP METAB OLIC PANEL anion gap 8.0 Not Available [facility] (Lab Registration) [address] [place], [address], 07/14/2024 16:55:28 07/15/19 25 07/14/2024 COMP METAB OLIC PANEL glucose 87 mg/dL 70-110 Not Available [facility] (Lab Registration) [address] [place], [address], 07/14/2024 16:55:28 07/15/19 25 07/14/2024 COMP METAB OLIC PANEL blood urea nitrogen 8 mg/dL 7-18 Not Available [facility] (Lab Registration) [address] [place], [address], 07/14/2024 16:55:28 07/15/19 25 07/14/2024 COMP METAB OLIC PANEL creatinine 1.0 mg/dL 0.6-1. 0 Not Available [facility] (Lab Registration) [address] [place], [address], 07/14/2024 16:55:28 07/15/19 25 07/14/2024 COMP METAB OLIC PANEL BUN/creatini ne ratio 8.0 9-21 low Not Available [facility] (Lab Registration) [address] [place], [address], 07/14/2024 16:55:28 07/15/19 25 07/14/2024 COMP METAB OLIC PANEL estimated glom filtration rate 69 mL/mi n >60- GFR LIMIT ATION : The eGFR equat ion CKD-E PI 2020 is not appli cable for pedia tric patie nts or great er than 90 years of age. The follo wing condi tions may alter the GFR resul t: extre mes in body size, malnu triti on or obesi ty, skele claire muscl e disea se, parap legia or quadr ipleg ia, veget mirian diet or rapid ly sarabia ing kiney funct ion. Not Available [facility] (Lab Registration) [address], [place], [address], 07/14/2024 16:55:28 07/15/19 25 07/14/2024 COMP METAB OLIC PANEL osmolality (calculated) 289 mOsm/ kg 275-30 1 OSMOL ALITY IS A CALCU LATIO N UTILI ZING THE SERUM /PLAS MA SODIU M, GLUCO SE AND UREA NITRO GEN (BUN) LEVEL S. FOR THE MOST ACCUR ATE RESUL T A MEASU RED SERUM OSMOL ALITY IS SUGGE STED. Not Available [facility] (Lab Registration) [address], [place], [address], 07/14/2024 16:55:28 07/15/19 25 07/14/2024 COMP METAB OLIC PANEL total protein 7.7 g/dL 6.4-8. 2 Not Available [facility] (Lab Registration) [address], [place], [address], 07/14/2024 16:55:28 07/15/19 25 07/14/2024 COMP METAB OLIC PANEL albumin 4.1 g/dL 3.4-5. 0 Not Available [facility] (Lab Registration) [address], [place], [address], 07/14/2024 16:55:28 07/15/19 25 07/14/2024 COMP METAB OLIC PANEL calcium 9.5 mg/dL 8.5-10 .1 Not Available [facility] (Lab Registration) [address], [place], [address], 07/14/2024 16:55:28 07/15/19 25 07/14/2024 COMP METAB OLIC PANEL corrected calcium 9.4 mg/dL 8.5-10 .1 Not Available [facility] (Lab Registration) [address], [place], [address], 07/14/2024 16:55:28 07/15/19 25 07/14/2024 COMP METAB OLIC PANEL bilirubin total 0.8 mg/dL 0.4-1. 5 Not Available [facility] (Lab Registration) [address], [place], [address], 07/14/2024 16:55:28 07/15/19 25 07/14/2024 COMP METAB OLIC PANEL AST (SGOT) 30 U/L 15-37 Not Available [facility] (Lab Registration) [address] [place], [address], 07/14/2024 16:55:28 07/15/19 25 07/14/2024 COMP METAB OLIC PANEL ALT (SGPT) 51 U/L 12-78 Not Available [facility] (Lab Registration) [address] [place], [address], 07/14/2024 16:55:28 07/15/19 25 07/14/2024 COMP METAB OLIC PANEL alk phosphatase 71 U/L 50-120 Not Available [facility] (Lab Registration) [address] [place], [address], 07/14/2024 16:55:28 07/15/19 25 07/14/2024 COMP METAB OLIC PANEL note Unles s other gilbert noted testi ng perfo rmed at: [facility] [address] [place] [address] [phone] Douglas joe MD CLIA: [id number] Not Available [facility] (Lab Registration) [address] [place], [address], 07/14/2024 16:55:28 07/15/19 25 07/14/2024 MAGNE SIUM magnesium 2.0 mg/dL 1.8-2. 4 Not Available [facility] (Lab Registration) [address], [place], [address], 07/14/2024 16:55:29 07/15/19 25 07/14/2024 MAGNE SIUM note Unles s other gilbert noted testi ng perfo rmed at: [facility] [address] [place] [address] [phone] Douglas joe MD CLIA: [id number] Not Available [facility] (Lab Registration) [address], [place], [address], 07/14/2024 16:55:29 07/15/19 25 07/14/2024 VITAM IN B12 vitamin B12 219 pg/mL 193-98 6 Not Available [facility] (Lab Registration) [address] [place], [address], 07/14/2024 16:55:31 07/15/19 25 07/14/2024 VITAM IN B12 folate (folic acid), serum 8.9 NG/mL 8.6-58 .9 Not Available [facility] (Lab Registration) [address], [place], [address], 07/14/2024 16:55:31 07/15/19 25 07/14/2024 VITAM IN B12 note Unles s other gilbert noted testi ng perfo rmed at: [facility] [address] [place] [address] [phone] Douglas joe MD CLIA: [id number] Not Available [facility] (Lab Registration) [address] [place], [address], 07/14/2024 16:55:31 07/15/19 25 07/14/2024 THYRO ID STIMU LATIN G HORMO NE thyroid stimulating hormone 10.96 mIU/m L 0.34-4 .80 high Not Available [facility] (Lab Registration) [address], [place], [address], 07/14/2024 16:55:32 07/15/19 25 07/14/2024 THYRO ID STIMU LATIN G HORMO NE note Unles s other gilbert noted testi ng perfo rmed at: [facility] [address] [place] [address] [phone] Douglas joe MD CLIA: [id number] Not Available [facility] (Lab Registration) [address] [place], [address], 07/14/2024 16:55:32 07/15/19 25 07/14/2024 T4 FREE T4,free 0.75 NG/dL 0.76-1 .46 low Effec tive today 013 new Refer ence Range . Not Available [facility] (Lab Registration) [address], [place], [address], 07/14/2024 16:55:33 07/15/19 25 07/14/2024 T4 FREE note Tarik s other gilbert noted testi ng perfo rmed at: [facility] [address] [place] [address] [phone] Douglas joe MD CLIA: [id number] Not Available [facility] (Lab Registration) [address] [place], [address], 07/14/2024 16:55:33 07/15/19 25 07/14/2024 JUAN TIN ferritin 292 NG/mL 8-388 Not Available [facility] (Lab Registration) [address] [place], [address], 07/14/2024 16:56:33 07/15/19 25 07/14/2024 JUAN TIN note Unles s other gilbert noted testi ng perfo rmed at: [facility] [address] [place] [address] [phone] Douglas joe MD CLIA: [id number] Not Available [facility] (Lab Registration) [address], [place], [address], 07/14/2024 16:56:33 07/15/19 25 07/14/2024 URIC ACID uric acid 4.9 mg/dL 2.2-7. 7 Not Available [facility] (Lab Registration) [address], [place], [address], 07/14/2024 16:56:34 07/15/19 25 07/14/2024 URIC ACID note Unles s other gilbert noted testi ng perfo rmed at: [facility] [address] [place] [address] [phone] Douglas joe MD CLIA: [id number] Not Available [facility] (Lab Registration) [address], [place], [address], 07/14/2024 16:56:34 07/15/19 25 07/14/2024 C-CYNTHIA CTIVE PROTE IN C-reactive protein, quant 0.10 mg/dL 0.05-0 .300 Not Available [facility] (Lab Registration) [address] [place], [address], 07/14/2024 16:56:36 07/15/19 25 07/14/2024 C-CYNTHIA CTIVE PROTE IN note Unles s other gilbert noted testi ng perfo rmed at: [facility] [address] [place] [address] [phone] Douglas joe MD CLIA: [id number] Not Available [facility] (Lab Registration) [address] [place], [address], 07/14/2024 16:56:36 07/15/19 25 07/14/2024 VITAM IN D TOTAL (D2+D 3) vitamin D25 (D2+D3) 47.6 NG/mL 30-100 Not Available [facility] (Lab Registration) [address], [place], [address], 07/14/2024 16:56:37 07/15/19 25 07/14/2024 VITAM IN D TOTAL (D2+D 3) note Unles s other gilbert noted testi ng perfo rmed at: [facility] [address] [place] [address] [phone] Douglas joe MD CLIA: [id number] Not Available [facility] (Lab Registration) [address], [place], [address], 07/14/2024 16:56:37 07/15/19 25 07/14/2024 SEDIM ENTAT ION RATE sedimentatio n rate 3 mm/HR 0-20 Not Available [facility] (Lab Registration) [address], [place], [address], 07/14/2024 17:20:23 07/15/19 25 07/14/2024 SEDIM ENTAT ION RATE note Unles s other gilbert noted testi ng perfo rmed at: [facility] [address] [place] [address] [phone] Douglas joe MD CLIA: [id number] Not Available [facility] (Lab Registration) [address] [place], [address], 07/14/2024 17:20:23 07/15/19 25 07/14/2024 RHEUM ATOID FACTO R QUAL note Unles s other gilbert noted testi ng perfo rmed at: [facility] [address] [place] [address] [phone] Douglas joe MD CLIA: [id number] Not Available [facility] (Lab Registration) [address] [place], [address], 07/15/2024 12:13:21 07/15/19 25 07/15/2024 RHEUM ATOID FACTO R QUAL RA latex turbid. <10.0 IU/mL -<14.0 Perfo rmed at: [facility] [address] [facility], [place] [address] Lab Direc tor: Cristofer toribio PhD, Phone : [phone] SENT TO REFER ENCE LAB Not Available [facility] (Lab Registration) [address], [place], [address], 07/15/2024 12:13:21 07/15/19 25 07/14/2024 CCP AB note Unles s other gilbert noted testi ng perfo rmed at: [facility] [address] [place], [place] [address] [phone] Douglas joe MD CLIA: [id number] Not Available [facility] (Lab Registration) [address], [place], [address], 07/15/2024 14:13:38 07/15/19 25 07/15/2024 CCP AB ccp antibodies IgG/IgA 7 units 0-19 Negat dileep <20 Weak posit dileep 20 - 39 Moder ate posit dileep 40 - 59 Stron g posit dileep >59 Perfo rmed at: - [facility] [address], [place] [address] Lab Direc tor: Cristofer toribio PhD, Phone : [phone] SENT TO REFER ENCE LAB Not Available [facility] (Lab Registration) [address], [place], [address], 07/15/2024 14:13:38 07/15/19 25 07/14/2024 YANA TITER BY IFA note Unles s other gilbert noted testi ng perfo rmed at: [facility] [address] [place] [address] [phone] Douglas joe MD CLIA: [id number] Not Available [facility] (Lab Registration) [address], [place], [address], 07/15/2024 15:11:21 07/15/19 25 07/15/2024 YANA TITER BY IFA YANA titer Negati ve Negat dileep <1:80 Borde rline 1:80 Posit dileep >1:80 ICAP nomen tomi re: AC-0 For more infor matmarva n about Hep-2 cell patte rns use ANApa ttern s.org , the offic iavesta rondon te for the Inter natio nal Conse nsus on Antin uclea r Antib [place] (YANA) Patte rns (ICAP ). Perfo rmed at: - [facility] [id number] [facility] Lab Direc tor: Cristofer toribio PhD, Phone : [phone] Not Available [facility] (Lab Registration) [address] , [place], [address], 07/15/2024 15:11:21 08/29/19 25 08/28/2024 HEMOG LOBIN A1C glycosylated hemoglobin A1C 5.6 % 4.5-6. 2 Not Available [facility] (Lab Registration) [address] , [place], [address], 08/28/2024 13:24:46 08/29/19 25 08/28/2024 HEMOG LOBIN A1C estimated average glucose 114 mg/dL 82-131 Not Available [facility] (Lab Registration) [address], [place], [address], 08/28/2024 13:24:46 08/29/19 25 08/28/2024 HEMOG LOBIN A1C note Unles s other gilbert noted testi ng perfo rmed at: [facility] [address] [place] [address] [phone] Douglas joe MD CLIA: [id number] Not Available [facility] (Lab Registration) [address], [place], [address], 08/28/2024 13:24:46 08/29/19 25 08/28/2024 THYRO ID STIMU LATIN G HORMO NE thyroid stimulating hormone 4.40 mIU/m L 0.34-4 .80 Not Available [facility] (Lab Registration) [address] [place], [address], 08/28/2024 13:28:21 08/29/19 25 08/28/2024 THYRO ID STIMU LATIN G HORMO NE note Unles s other gilbert noted testi ng perfo rmed at: [facility] [address] [place] [address] [phone] Douglas joe MD CLIA: [id number] Not Available [facility] (Lab Registration) [address] [place], [address], 08/28/2024 13:28:21 08/29/19 25 08/28/2024 T4 FREE T4,free 0.89 NG/dL 0.76-1 .46 Effec tive today 013 new Refer ence Range . Not Available [facility] (Lab Registration) [address] [place], [address], 08/28/2024 13:28:22 08/29/19 25 08/28/2024 T4 FREE note Unles s other gilbert noted testi ng perfo rmed at: [facility] [address] [place] [address] [phone] Douglas joe MD CLIA: [id number] Not Available [facility] (Lab Registration) [address] [place], [address], 08/28/2024 13:28:22 08/29/19 25 08/28/2024 COMP METAB OLIC PANEL sodium 142 mmol/ L 136-14 5 Not Available [facility] (Lab Registration) [address] [place], [address], 08/28/2024 13:28:23 08/29/19 25 08/28/2024 COMP METAB OLIC PANEL potassium 4.1 mmol/ L 3.5-5. 1 Not Available [facility] (Lab Registration) [address] [place], [address], 08/28/2024 13:28:23 08/29/19 25 08/28/2024 COMP METAB OLIC PANEL chloride 107 mmol/ L 98-107 Not Available [facility] (Lab Registration) [address] [place], [address], 08/28/2024 13:28:23 08/29/19 25 08/28/2024 COMP METAB OLIC PANEL carbon dioxide 24 mmol/ L 21-32 Not Available [facility] (Lab Registration) [address] [place], [address], 08/28/2024 13:28:23 08/29/19 25 08/28/2024 COMP METAB OLIC PANEL anion gap 11.0 Not Available [facility] (Lab Registration) [address] [place], [address], 08/28/2024 13:28:23 08/29/19 25 08/28/2024 COMP METAB OLIC PANEL glucose 94 mg/dL 70-110 Not Available [facility] (Lab Registration) [address] [place], [address], 08/28/2024 13:28:23 08/29/19 25 08/28/2024 COMP METAB OLIC PANEL blood urea nitrogen 13 mg/dL 7-18 Not Available [facility] (Lab Registration) [address] [place], [address], 08/28/2024 13:28:23 08/29/19 25 08/28/2024 COMP METAB OLIC PANEL creatinine 0.8 mg/dL 0.6-1. 0 Not Available [facility] (Lab Registration) [address], [place], [address], 08/28/2024 13:28:23 08/29/19 25 08/28/2024 COMP METAB OLIC PANEL BUN/creatini ne ratio 16.3 9-21 Not Available [facility] (Lab Registration) [address], [place], [address], 08/28/2024 13:28:23 08/29/19 25 08/28/2024 COMP METAB OLIC PANEL estimated glom filtration rate 90 mL/mi n >60- GFR LIMIT ATION : The eGFR equat ion CKD-E PI 2020 is not appli cable for pedia tric patie nts or great er than 90 years of age. The follo wing condi tions may alter the GFR resul t: extre mes in body size, malnu triti on or obesi ty, skele claire muscl e disea se, parap legia or quadr ipleg ia, veget mirian diet or rapid ly sarabia ing kiney funct ion. Not Available [facility] (Lab Registration) [address], [place], [address], 08/28/2024 13:28:23 08/29/19 25 08/28/2024 COMP METAB OLIC PANEL osmolality (calculated) 295 mOsm/ kg 275-30 1 OSMOL ALITY IS A CALCU LATIO N UTILI ZING THE SERUM /PLAS MA SODIU M, GLUCO SE AND UREA NITRO GEN (BUN) LEVEL S. FOR THE MOST ACCUR ATE RESUL T A MEASU RED SERUM OSMOL ALITY IS SUGGE STED. Not Available [facility] (Lab Registration) [address], [place], [address], 08/28/2024 13:28:23 08/29/19 25 08/28/2024 COMP METAB OLIC PANEL total protein 7.7 g/dL 6.4-8. 2 Not Available [facility] (Lab Registration) [address], [place], [address], 08/28/2024 13:28:23 08/29/19 25 08/28/2024 COMP METAB OLIC PANEL albumin 4.3 g/dL 3.4-5. 0 Not Available [facility] (Lab Registration) [address] [place], [address], 08/28/2024 13:28:23 08/29/19 25 08/28/2024 COMP METAB OLIC PANEL calcium 9.4 mg/dL 8.5-10 .1 Not Available [facility] (Lab Registration) [address] [place], [address], 08/28/2024 13:28:23 08/29/19 25 08/28/2024 COMP METAB OLIC PANEL corrected calcium 9.2 mg/dL 8.5-10 .1 Not Available [facility] (Lab Registration) [address] [place], [address], 08/28/2024 13:28:23 08/29/19 25 08/28/2024 COMP METAB OLIC PANEL bilirubin total 0.6 mg/dL 0.4-1. 5 Not Available [facility] (Lab Registration) [address] [place], [address], 08/28/2024 13:28:23 08/29/19 25 08/28/2024 COMP METAB OLIC PANEL AST (SGOT) 24 U/L 15-37 Not Available [facility] (Lab Registration) [address] [place], [address], 08/28/2024 13:28:23 08/29/19 25 08/28/2024 COMP METAB OLIC PANEL ALT (SGPT) 39 U/L 12-78 Not Available [facility] (Lab Registration) [address] [place], [address], 08/28/2024 13:28:23 08/29/19 25 08/28/2024 COMP METAB OLIC PANEL alk phosphatase 62 U/L 50-120 Not Available [facility] (Lab Registration) [address] [place], [address], 08/28/2024 13:28:23 08/29/19 25 08/28/2024 COMP METAB OLIC PANEL note Unles s other gilbert noted testi ng perfo rmed at: [facility] [address] [place] [address] [phone] Douglas joe MD CLIA: [id number] Not Available [facility] (Lab Registration) [address] [place], [address], 08/28/2024 13:28:23 08/29/19 25 08/28/2024 AMYLA SE amylase 51 U/L 25-115 Not Available [facility] (Lab Registration) [address] [place] [place], [address], 08/28/2024 13:28:24 08/29/19 25 08/28/2024 AMYLA SE note Unljazzy s other gilbert noted testi ng perfo rmed at: [facility] [address] [place] [phone] Douglas joe MD CLIA: [id number] Not Available [facility] (Lab Registration) [address] [place] [place], [address], 08/28/2024 13:28:24 08/29/19 25 08/28/2024 LIPAS E lipase 75 U/L 16-77 Not Available [facility] (Lab Registration) [address] [place], [address], 08/28/2024 13:28:25 08/29/19 25 08/28/2024 LIPAS E note Unles s other gilbert noted testi ng perfo rmed at: [facility] [address] [place] [phone] Douglas joe MD CLIA: [id number] Not Available [facility] (Lab Registration) [address] [place] [place], [address], 08/28/2024 13:28:25 08/29/19 25 08/28/2024 INSUL IN TOTAL note Unles s other gilbert noted testi ng perfo rmed at: [facility] [address] [place] [phone] Douglas joe MD CLIA: [id number] Not Available [facility] (Lab Registration) [address] , [place], [address], 08/30/2024 14:11:09 08/29/19 25 08/30/2024 INSUL IN TOTAL insulin 11.5 uIU/m L 2.6-24 .9 Perfo rmed at: [facility] [address] [facility], [place], [place] [address] Lab Direc tor: Cristofer toribio PhD, Phone : [phone] SENT TO REFER ENCE LAB Not Available [facility] (Lab Registration) [address] , [place], [address], 08/30/2024 14:11:09 08/29/19 25 08/28/2024 C-PEP TIDE note Unles s other gilbert noted testi ng perfo rmed at: [facility] [address] [place] [phone] Douglas joe MD CLIA: [id number] Not Available [facility] (Lab Registration) [address] , [place], [address], 08/30/2024 14:11:10 08/29/19 25 08/30/2024 C-PEP TIDE C-peptide, serum 4.0 NG/mL 1.1-4. 4 C-Pep tide refer ence inter audrey is for fasti ng patie nts. Perfo rmed at: [facility] [address] [facility], [facility], [place] [address] Lab Direc tor: Cristofer otribio PhD, Phone : [phone] Not Available [facility] (Lab Registration) [address] [place], [address], 08/30/2024 14:11:10 12/24/19 24 12/24/2023 MAMMO , scree yevgeniy, digit al, bilat eral [facility] [address] [place] [address] Phone: Fax: Name: RODNEY DICK Exam Date: 024 : 975 Age 48 years Gender : F Access ion: [id number] Physic yong: NIKUNJ HERNANDEZ, TAFSHERRI Y Facili ty: [facility] Facili ty HSV: Outpat ient Exam: SCREEN MAMMO W CAD BILAT Exam: 3-D screen ing mammog zach includ ing tomosy nthesi s and CAD (Compu ter Assist ed Detect ion). Clinic al indica tion: Asympt omatic screen ing exam Compar mireya: Exams to 2021 TECHNI QUE: Routin e bilate ral 2D screen ing mammog yg with CC and MLO views obtain ed. 3-D tomosy nthesi s and Comput er assist ed detect ion were utiliz ed for this exam. BREAST DENSIT Y: There are scatte red fibrog landul ar densit ies FINDIN GS: No suspic ious mass, dexter ectura l distor tion, or suspic ious calcif icatio ns are presen t. IMPRES TONY: No eviden ce of malign denise in either breast Recomm endati on: Annual screen ing mammog zach recomm ended in one year The result s of this report will be commun icated to the patien t by letter in layman 's terms. ACR BI-RAD S: BI-RAD S assess ment catego ry 1: Negati ve mammog yg Mammog zach does not detect approx imatel y 10-15% of breast cancer s. A normal mammog yg does not exclud e breast cancer in a patien t with palpab le mass or abnorm al findin gs on physic al examin ation. These patien ts may need biopsi es and when clinic ambery robin resendiz a biopsy should not be postpo denton becaus e of a normal mammog yg. If the patien t has breast surger y or biopsy , FDA/ [place] Regula tory Guidel janay mandat e that this facili ty receiv e pathol ogic result s for follow -up correl ation. Electr onical ly signed by: Biju Granado MD 2023 02:08 PM EDT RP Workst ation: [id number] Dictat ed By: Biju Granado Transc ribed By: Transc ribed On: 1:52 PM Electr onical ly signed by: Biju Granado Thank you [facility] Legall y authen ticate d by SYMONE GAITAN MD 2023-0 12-23 13:52: 00 CC'ed Logic: Orderi ng Provid er: AMBURG EY TAFFAN Y CC Provid er: AMBURG EY TAFFAN Y Attend ing Provid er: AMBURG EY TAFFAN Y Referr ing Provid er: AMBURG EY TAFFAN Y Admitt ing Provid er: AMBURG EY TAFFAN Y tpardini [facility] (Radiology) [address] [place], [address], 12/24/2023 16:33:18 12/24/19 24 12/24/2023 US, thyro id [facility] it Hospit [address] [place] [address] Phone: Fax: Name: RODNEY DICK Exam Date: : [birth year] Age 48 years Gender : F Access ion: [id number] Physic yong: AMBURG EY, TAFFAN Y Facili ty: [facility] Facili ty HSV: Outpat ient Exam: US THYROI D PROCED URE: US THYROI D. HISTOR Y: Patien t is a 48 year old Female with palpab le area of the neck. Swelli ng. Goiter . COMPAR MIREYA: None availa ble. TECHNI QUE: Two-di mensio nal graysc connor ultras ound imagin g of the thyroi d and adjace nt soft tissue s was perfor med. Color flow imagin g was also perfor med. FINDIN GS: The right lobe of the thyroi d measur es 5.4 x 2.7 x 2.1 cm and demons trates a hetero geneou s echote xture. The left lobe of the thyroi d measur es 4.9 x 1.9 x 1.8 cm and demons trates a hetero geneou s echote xture. The isthmu s measur es 0.5 cm. The thyroi d gland demons trates increa sed vascul arity. NODULE #1 Maximu m size: 1.0 cm; Other 2 dimens ions: 0.9 x 0.6 cm. Locati on: Right; mid Compos ition: solid/ almost comple tely solid (2) Echoge nicity : hypoec hoic (2) Shape: not taller -than- wide (0) Margin s: smooth (0) Echoge santhosh foci: none (0) ACR TI-RAD S total points : 4 ACR TI-RAD S risk catego ry: TR4 (4-6 points ) ACR TI-RAD S recomm endati on: Follow up ultras ound in one year. IMPRES TONY: 1. Enlarg ed, hetero geneou s, hyperv ascula r thyroi d gland. 2. Single right thyroi d nodule meets ACR criter ia for follow -up ultras ound in one year. ACR TI-RAD S recomm endati ons TR1 (1 point) - no follow -up needed TR2 (2 points ) - no follow -up needed TR3 (3 points ) - FNA if >/= 2.5 cm; follow up if 1.5 - 2.4 cm and 1, 3 and 5 years TR4 (4-6 points ) - FNA if >/= 1.5 cm; follow up if 1.0 - 1.4 cm and 1, 2, 3 and 5 years TR5 (>7 points ) - FNA if >/= 1.0 cm; follow up if 0.5 - 0.9 cm every year for 5 years Thank you for allowi ng us to assist in the care of this patien t. Electr onical ly signed by: Horace Philip MD 2023 08:56 PM EDT RP Workst ation: [id number] Legall y authen ticate d by MIGDALIA POSADAS MD 12-23 13:40: 00 Dictat ed By: Horace Philip Transc ribed By: Transc ribed On: 1:40 PM Electr onical ly signed by: Horace Philip Thank you for [facility]err [facility] Legall y authen ticate d by MIGDALIA POSADAS MD 12-23 13:40: 00 CC'ed Logic: Orderi ng Provid er: AMBURG EY TAFFAN Y CC Provid er: AMBURG EY TAFFAN Y Attend ing Provid er: AMBURG EY TAFFAN Y Referr ing Provid er: AMBURG EY TAFFAN Y Admitt ing Provid er: AMBURG EY TAFFAN Y [email or web address] [place] [address] (Radiology) [address] [place] [address] [place], [address], 12/25/2023 11:34:06 12/25/19 24 12/24/2023 MRI, brain , w/o contr [facility] [address] [place] [address] Phone: Fax: Name: RODNEY DICK Exam Date: : [birth year] Age 48 years Gender : F Access ion: [id number] Physic yong: AMBURG EY, TAFFAN Y Facili ty: [facility] Facili ty HSV: Outpat ient Exam: MRI BRAIN WO MRI brain withou t IV contra st. INDICA TION: Dizzin ess, migrai ne headac hes and visual change s. COMPAR MIREYA: CT brain 2020. TECHNI QUE: Routin e multip lanar imagin g perfor med throug h the brain. FINDIN GS: No eviden ce of acute CVA, intrac ranial hemorr howie or mass effect . No substa ntial signal abnorm ality in the brain. Ventri cles are normal in size and config uratio n. Slight asymme try of the latera l ventri cles appear stable and is within normal limits . No excess dileep cortic al atroph y for age. No hemosi derosi s. Visual ized vascul ar flow voids and visual ized crania l nerves normal . Orbits and sella turcic a normal . Visual ized parana silver sinuse s and mastoi d air cells clear except for small mucous retent ion cyst in the right maxill luz sinus. Mastoi d air cells clear. IMPRES TONY: Normal noncon trast MRI brain. Electr onical ly signed by: Shante luz MD 2023 10:06 AM EDT RP Workst ation: [id number] Dictat ed By: SHANTE JANSEN Transc ribed By: Transc ribed On: 024 2:26 PM Electr onical ly signed by: SHANTE JANSEN 024 Thank you for referr RODNEY Rodriguez to [facility] Hospit al. Legall y authen ticate d by MAUDE PARRA MD 12-23 14:26: 59 CC'ed Logic: Orderi ng Provid er: AMBURG EY TAFFAN Y CC Provid er: AMBURG EY TAFFAN Y Attend ing Provid er: AMBURG EY TAFFAN Y Referr ing Provid er: AMBURG EY TAFFAN Y Admitt ing Provid er: AMBURG EY TAFFAN Y [facility] (Radiology) [address] [place] [address] [place], [address], 01/01/2024 09:21:10 07/15/1907/14/2024 elect olena diogr am No observ ation record ed. [facility] [address] [place], [address], 07/15/2024 07:51:03 07/30/19 25 07/24/2024 home sleep study No observ ation record ed. [email or web address] [facility] [address] [place], [address], 09/11/2024 12:15:33 10/28/1910/09/2024 MRI, heart funct ion and morph ology , w/wo contr ast No observ ation record ed. [facility] [address], [place], [address], 11/02/2024 14:21:06 Result Notes Documentation Provider Name and Address Organization Details Recorded Time Mammo, Screening, Digital, Bilateral : [address] [place] [address] Name: YENNY DICK Exam Date: 12/24/2023 : 1975 Age 48 years Gender: F Physician: NATE PANTOJA Facility: [facility] Facility HSV: Outpatient Exam: SCREEN MAMMO W CAD BILAT Exam: 3-D screening mammography including tomosynthesis and CAD (Computer Assisted Detection). Clinical indication: Asymptomatic screening exam Comparison: Exams to 2021 TECHNIQUE: Routine bilateral 2D screening mammogram with CC and MLO views obtained. 3-D tomosynthesis and Computer assisted detection were utilized for this exam. BREAST DENSITY: There are scattered fibroglandular densities FINDINGS: No suspicious mass, architectural distortion, or suspicious calcifications are present. IMPRESSION: No evidence of malignancy in either breast Recommendation: Annual screening mammography recommended in one year The results of this report will be communicated to the patient by letter in layman's terms. ACR BI-RADS: BI-RADS assessment category 1: Negative mammogram Mammography does not detect approximately 10-15% of breast cancers. A normal mammogram does not exclude breast cancer in a patient with palpable mass or abnormal findings on physical examination. These patients may need biopsies and when clinically indicated a biopsy should not be postponed because of a normal mammogram. If the patient has breast surgery or biopsy, FDA/SA Regulatory Guidelines mandate that this facility receive pathologic results for follow-up correlation. Electronically signed by: Leonardo Granado MD 12/24/2023 02:08 PM EDT RP Dictated By: Leonardo Granado Transcribed By: Transcribed On: 12/24/2023 1:52 PM Electronically signed by: Leonardo Granado 12/24/2023 Thank you for referring YENNY DICK to [facility]. Legally authenticated by SYMONE MALLORY MD 2023-12-24 13:52:00 CC'ed Logic: Ordering Provider: KIT SULLIVAN CC Provider: KIT SULLIVAN Attending Provider: KIT SULLIVAN Referring Provider: KIT SULLIVAN Admitting Provider: KIT [facility] 12/24/2023 16:33:18 Mri, Brain, W/o Contrast : [address] [place] [address] Name: YENNY DICK Exam Date: 12/24/2023 : 1975 Age 48 years Gender: F Physician: NATE PANTOJA Facility: [facility] Facility HSV: Outpatient Exam: MRI BRAIN WO MRI brain without IV contrast. INDICATION: Dizziness, migraine headaches and visual changes. COMPARISON: CT brain 03/09/2021. TECHNIQUE: Routine multiplanar imaging performed through the brain. FINDINGS: No evidence of acute CVA, intracranial hemorrhage or mass effect. No substantial signal abnormality in the brain. Ventricles are normal in size and configuration. Slight asymmetry of the lateral ventricles appear stable and is within normal limits. No excessive cortical atrophy for age. No hemosiderosis. Visualized vascular flow voids and visualized cranial nerves normal. Orbits and sella turcica normal. Visualized paranasal sinuses and mastoid air cells clear except for small mucous retention cyst in the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
--- OUTSIDE RECORDS SUMMARY | 2024-11-20 08:46 | XMS_ITS | Encounter Summary ---
Author Organization [facility] Address [address] [place] [address] Care Team Providers Care Preschool Adviser Name Role Phone Xochitl Johnson OUTGOING INSPECTOR Primary Care Provi kaylie Encounter Details Date Type Department Care Team (Latest Contact Info) Description 10/23/2024 Travel Social History Tobacco Use Types Packs/Day Years [...] on file documented as of this encounter Plan of Treatment Upcoming Encounters Date Type Department Care Team (Late st Contact Info) Description 12/18/2024 10:30 AM EDT Office Visit [facility] [address] [place] [address] Marichuy Matthews APRN [address] [place] [address] documented as of this encounter Visit Diagnoses Not on filedocumented in this encounter Care Teams Preschool Adviser Relationship Specialty Start Date End Date Xochitl Johnson APRN [address] [place] [address] PCP - General Nurse Practitioner 07/22/24 documented as of this encounter
--- OUTSIDE RECORDS SUMMARY | 2024-11-20 08:46 | XMS_ITS | Clinical Summary ---
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 18 g 2 08/09/19 24 Active amitriptyline (ELAVIL) 25 MG tabletIndications: Insomnia due to medical condition Take 1 tablet by mouth Every Night. 30 tablet 02/24/20 24 Active cetirizine (zyrTEC) 10 MG tabletIndications: Seasonal allergic rhinitis due to pollen Take 1 tablet by mouth Daily. 30 tablet 02/24/20 24 Active STEWARD/STEWARDESS THIRD Thyroid 30 MG tablet Take 1 tablet by mouth Daily. 07/17/19 25 Active metoprolol tartrate (LOPRESSOR) 50 MG tabletIndications: Palpitation,Syncop e and collapse,Mixed hyperlipidemia Take 50 mg at Bedtime the Night Before Coronary CTA Appointment and In the Morning 1 Hour Prior to Coronary CTA Appointment. Do not take if heart rate less than 60. 2 tablet 09/12/19 25 025 Discontin ued(*Ther apy completed ) Active Problems Problem Noted Date Diagnosed Date MARJAN (obstructive sleep apnea) 10/23/2024 Assessment & Plan (10/23/2024 4:20 PM EDT): Patient has a baseline AHI 5 that increases to 8 in supine. This is mild sleep apnea. Treatment options have been discussed with patient. Sleep risk and hygiene have been reviewed. Patient verbalizes understanding. Patient wishes to proceed with CPAP therapy. Prescription sent to DME of patient choice for new ResMed auto CPAP 6-14 cm with Pap supplies. Mask fit please. Follow-up in 8 weeks. Hypersomnia 09/11/2024 Assessment & Plan (09/11/2024 3:24 PM EDT): Patient had HST that was ordered by Xochitl Johnson APRN. These results have been reviewed and are nondiagnostic for sleep apnea. Patient was noted to have oxygen desaturation during her WOJCIECH. Patient reports daytime sleepiness and fatigue. Plan PSG for further evaluation. Subaortic membrane 09/11/2024 Assessment & Plan (09/11/2024 3:26 PM EDT): WOJCIECH 09/08/2024 showed subaortic membrane or extremely eccentric left ventricular hypertrophy with slight protrusion into the left ventricle outflow tract this is not causing any obstructive gradient. Syncope and collapse 07/24/2024 Assessment & Plan (09/11/2024 3:18 PM EDT): Patient states that she has not had any episodes since last visit. She reports that when these episodes happen that she can be just standing and then all of a sudden collapses and everything goes black. She states that she hears everything that goes on around her but she cannot speak and cannot move. She reports that these episodes are very infrequent and has only had 2 since the first of the year. 30-day live Holter monitor was relatively a normal study 1% PVCs and no significant pauses or arrhythmias. We will plan a CCTA for further cardiac evaluation. Assessment & Plan (07/24/2024 12:32 PM EDT): Patient reports episodes of where she is just standing and then all of a sudden just collapses and everything goes black. She states that she cannot speak cannot move. She states that these episodes are infrequent and started about a year ago. She has had frequent dizziness for several years but the symptoms of syncope started after having COVID last year. She states that she had an episode in March and then again a few weeks ago. Plan a 30-day live monitor for further evaluation of critical arrhythmias or pauses. Echo to evaluate any valvular or structural abnormalities. Abnormal EKG 07/24/2024 Assessment & Plan (09/11/2024 3:20 PM EDT): Previous EKG at her PCP office showed sinus rhythm with a right bundle branch block, low QRS voltage in pericardial leads. Plan CCTA for further evaluation. Assessment & Plan (07/24/2024 12:29 PM EDT): Patient had abnormal EKG in her PCP office showing sinus rhythm with a right bundle branch block low QRS voltage in pericardial leads. EKG today showed sinus rhythm with low QRS voltage in pericardial leads. Mixed hyperlipidemia 10/28/2023 Assessment & Plan (09/11/2024 3:21 PM EDT): Lipid abnormalities are stable Plan: Continue same medication/s without change. Discussed medication dosage, use, side effects, and goals of treatment in detail. Counseled patient on lifestyle modifications to help control hyperlipidemia. Patient Treatment Goals: LDL goal is less than 70 Followup in 6 months. Assessment & Plan (10/28/2023 5:09 PM EDT): 12/27/2021 blood work with total cholesterol under 91, triglycerides 156, HDL 46 and LDL 117. Modest dyslipidemia pattern, with no need for medication. Reinforced healthy diet, exercise and benefits of even modest weight loss. Recheck with blood work with 10/28/2023 laboratory investigations. Palpitation 10/28/2023 Assessment & Plan (09/11/2024 3:19 PM EDT): Infrequent palpitation, not irregular heartbeat, without any shortness of breath or chest tightness. Patient was noted to have 1% PVCs on a 30-day live heart monitor with no significant pauses or arrhythmias. Assessment & Plan (10/28/2023 5:03 PM EDT): Infrequent palpitation, not irregular heartbeat, without any shortness of breath or chest tightness. EKG nonconcerning pattern with borderline left axis but still normal axis, overall felt to be normal EKG. None to compare previous. Overall nonconcerning pattern, caution caffeine intake. No further investigations necessary. Advise any worsening. Chronic pain of right knee 10/28/2023 Assessment & Plan (10/28/2023 5:08 PM EDT): Somewhat of an acute on chronic pattern where she has had intermittent pain in the knee but more exacerbated recently as she has been exercising more doing resistance training with her legs, with pain more still superior to the patella, bit of a grinding sensation, with no joint margin tenderness on exam, no instability. I would like to obtain x-ray of the right knee to assess for any underlying bony abnormality and if reassuring would recommend physical therapy to evaluate and treat. She believes that her exercise facility they can do some therapy and would like to try that before pursuing formal physical therapy by myself, but she will call if she wants to pursue. Intrinsic asthma without status asthmaticus 07/28 Assessment & Plan (10/28/2023 5:09 PM EDT): Mild intermittent pattern with initial flare 08/09/2023. Good response to treatment at that time, and since then she has not had need for rescue inhaler use. Continue albuterol inhaler 2 puffs every 4-6 hours as needed, caution viral and allergy triggers. Advise any worsening. Assessment & Plan (08/09/2023 11:33 AM EDT): No known pattern previous, first flare today 08/09/2023. Modest pattern related to viral syndrome. Initiate prednisone 10 mg tablet 3 tablets daily x 5 days with albuterol inhaler spacer schedule II puffs every 4-6 hours for the next couple days, then as needed. Also reinforced benefits of vaping cessation which could likely be a contributing factor to this pattern. Advised if not improving. Sore throat 08/09/2023 Assessment & Plan (08/09/2023 11:35 AM EDT): Strep screen negative, please see viral syndrome for other details. Viral syndrome 01/29/2023 Assessment & Plan (08/09/2023 11:32 AM EDT): Strep screen negative, patient reasonably declines flu screen and COVID testing as it would not change nature treatment now that she is 5 days into illness. Mild asthmatic response as per that assessment plan. Otherwise recommendation of saline spray, cool-mist humidifier. Expectation of similar symptoms from the couple days and gradual improvement. Advised new onset fever or worsening. Assessment & Plan (01/29/2023 2:02 PM EDT): Flu screen negative, COVID-19 testing negative, consistent with another viral illness which is common in community with exacerbating fluid on the TMs and causing some positional dizziness of the head. Zofran for nausea. Treatment of Zyrtec Flonase and prednisone for allergies as initiated. Robitussin-DM for cough and congestion. Additional benefit of saline spray, nasal flushing. Advised if not improving. Seasonal allergic rhinitis due to pollen 023 Assessment & Plan (10/28/2023 5:12 PM EDT): Seasonal pattern of allergy symptoms more spring and fall with good response to Zyrtec and Flonase as needed, currently using with benefit. Continue for another week or 2 then as needed. Additional benefit of saline spray, nasal flushing. We could consider adding montelukast in the future for any breakthrough symptoms. Advise concerns. Assessment & Plan (01/29/2023 2:02 PM EDT): Ongoing allergy symptoms likely contributing to her symptoms of vertigo and dizziness from presumed eustachian tube dysfunction. Recommend initiation of Zyrtec and Flonase to use regularly for the next couple weeks, and as needed. Prednisone 10 mg tablet 3 tablets daily x5 days we will also give benefit in regards to allergies. Advised if not improving. 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 No visual difficulties. Initiate erythromycin ointment applying a small strip to the affected area 3-4 times daily for 7 to 10 days. Keep the area clean, advised new onset redness or swelling. Abnormal thyroid blood test 02/07/2022 Assessment & Plan (10/28/2023 5:06 PM EDT): From blood work on 12/27/2021, TSH is modestly elevated at 7.23 with normal free T4 at 1.06, consistent with subclinical hypothyroidism pattern. Recheck of TSH and free T4 in 02/13/2022 resulted in TSH of 8.37, free T4 1.11. Initiation of levothyroxine 25 mcg at that time but due to some stressors around her right shoulder surgery, she did not start taking it regularly until about mid February. Plan was to recheck TSH and free T4 in 6 weeks but never completed and she has been off the levothyroxine 25 mcg daily for quite a while, greater than many months. Recheck TSH and free T4 blood work with management per results. Assessment & Plan (03/29/2022 12:38 PM EST): From blood work on 12/27/2021, TSH is modestly elevated at 7.23 with normal free T4 at 1.06, consistent with subclinical hypothyroidism pattern. Recheck of TSH and free T4 in 02/13/2022 resulted in TSH of 8.37, free T4 1.11. Initiation of levothyroxine 25 mcg at that time but due to some stressors around her right shoulder surgery, she did not start taking it regularly until about mid February. As such I will have her come back in about 6 weeks to have TSH and free T4 rechecked on the levothyroxine 25 mcg daily Assessment & Plan (02/07/2022 1:23 PM EDT): From blood work on 12/27/2021, TSH is modestly elevated at 7.23 with normal free T4 at 1.06, consistent with subclinical hypothyroidism pattern. Recheck TSH and free T4 at this time with management per results. Colon cancer screening 02/07/2022 Assessment & Plan (10/28/2023 5:08 PM EDT): Cologuard testing set up as initial colon cancer screening as of 10/28/2023. Right shoulder pain 02/07/2022 Assessment & Plan (03/29/2022 12:38 PM EST): Status post right shoulder repair by Dr. Pozo on 03/07/2022 for which she still is using a right arm splint and is having improvement but still some persisting pain that is even requiring oxycodone use typically once daily on average. She follows up with Dr. Pozo next 04/19/2022. Assessment & Plan (02/07/2022 1:28 PM EDT): Ongoing evaluation and management by Dr. Pozo with planned surgery on 03/07/2022 Overweight (BMI 25.0-29.9) 02/07/2022 Assessment & Plan (10/28/2023 5:10 PM EDT): Modest increased weight with BMI in the 27 range, recommend healthy diet, exercise and benefits of weight loss. Assessment & Plan (02/07/2022 1:29 PM EDT): Modest increased weight, recommend healthy diet, exercise and benefits of weight loss. Beta thalassemia trait 12/27/2021 Assessment & Plan (10/28/2023 5:07 PM EDT): Strong family history of the same with expectation with blood work that she will have a modest anemic pattern. Assessment & Plan (02/07/2022 1:23 PM EDT): Strong family history of the same with expectation with blood work that she will have a modest anemic pattern. Assessment & Plan (12/27/2021 1:30 PM EDT): Strong family history of the same, with expectation with blood work she will have a modest anemic pattern. Anxiety and depression 12/27/2021 Assessment & Plan (10/28/2023 5:07 PM EDT): Onset more notable pattern and 2020, exacerbated by family stressors. Since that time she is generally done better and handles her stressors better at this time. Declines need for medication. Getting better sleep is also resulted in some improvement in stress pattern. No SI/HI. She declines need for specific mood medicine although what appears to be somewhat comorbid insomnia pattern addressed as per that assessment plan. Lifestyle modifications to benefit mood including regular exercise, pursuit of enjoyable activities, improve communication, etc. advise concerns. Assessment & Plan (08/09/2023 11:30 AM EDT): Onset more notable pattern and 2020, exacerbated by having family members living in the home over the preceding year, as well as some frustrations postsurgically right shoulder pain. Since that time she has done better although recognize she still has had ups and downs with the moods but she still feels she handles her stressors well. No SI/HI. She declines need for specific mood medicine although what appears to be somewhat comorbid insomnia pattern addressed as per that assessment plan. I continue to recommend advise any concerns or worsening. Lifestyle modifications to benefit mood including regular exercise, pursuit of enjoyable activities, improve communication, etc. Assessment & Plan (03/29/2022 12:37 PM EST): Onset more so in 2020, exacerbated by having family members living in the home over the preceding 6 months or so. Some modest flare over the last weeks coinciding with frustrations postsurgical right shoulder which limits her ability to do things and she has lost some of her independence. Nonetheless she still feels this is transient, overall feels her mood is doing fine and is not interested in medicine. Discussion of lifestyle modifications to benefit mood including regular exercise, pursuit of enjoyable activities, improve communication, etc. Assessment & Plan (02/07/2022 1:24 PM EDT): Onset more so in 2020, exacerbated by having family members living in the home over the preceding 6 months or so. She does feel that she is doing a little better in this regard and still does not feel that she needs any medicine. Discussion of lifestyle modifications to benefit mood including regular exercise, pursuit of enjoyable activities, improve communication, etc. Assessment & Plan (12/27/2021 1:31 PM EDT): Presenting more as fatigue initially, but this is clearly related to mood as it waxes and wanes related to her stressors and on vacation this will go away. Present for the last year or so, gradually progressing, exacerbated by having family members living in the home over the last 6 months or so. Discussion of lifestyle modifications to benefit mood including regular exercise, pursuit of enjoyable activities, improve communication, etc. Patient declines desire for medicine at this time but we will reassess at 3-month follow-up visit. Vaping nicotine dependence, tobacco product 11/29 Assessment & Plan (10/28/2023 5:12 PM EDT): History of cigarette smoking with cessation 03/06/2022 just prior to her right shoulder surgery, historically smoking at 1/4 pack/day historically at about 1/4 pack/day and on and off for many years. Subsequent transition to vaping with nicotine daily, but not a frequent volume. I still discussed potential secondary effects such as asthmatic trigger which she has had on 08/09/2023. Recommend weaning off and pursuing cessation in future and she will consider. Reassess at follow-up complete physical 3 months. Assessment & Plan (08/09/2023 11:34 AM EDT): Smoking cigarettes with cessation 03/06/2022 just prior to her right shoulder surgery, historically smoking at 1/4 pack/day historically at about 1/4 pack/day and on and off for many years. Subsequent transition to vaping with nicotine although daily not at a high level, but still I discussed potential secondary effects such as asthmatic trigger which she has had on 08/09/2023. Recommend weaning off and pursuing cessation in future and she will consider. Reassess at follow-up complete physical 3 months. Assessment & Plan (03/29/2022 12:36 PM EST): Cessation 03/06/2022 just prior to her right shoulder surgery, historically smoking at 1/4 pack/day historically the same range. I reinforced importance of ongoing cessation for long-term health benefits, and difficulties and challenges of starting smoking again. Assessment & Plan (02/07/2022 1:23 PM EDT): Smoking currently at 1/4 pack/day, historically the same range. Recommend benefits of cessation, and risks of ongoing use, discussed in detail. Patient's not quite ready to quit, but plans to potentially pursue once her stressors are more managed. I advised concerns in the interim. Assessment & Plan (12/27/2021 1:30 PM EDT): Smoking currently at 1/4-1/2 pack/day, historically the same range. Recommend benefits of cessation, and risks of ongoing use, discussed in detail. Patient's not quite ready to quit, although once her mood is hopefully doing better that would be more reasonable to pursue. I advised concerns in the interim. Rash and nonspecific skin eruption 12/27/2021 Assessment & Plan (12/27/2021 1:30 PM EDT): Unusual nonspecific pattern of some modest rash in the bilateral lower legs near the shins lasting a day or so, with a bit of associated swelling that then resolved. No clear pattern related to heat, sun exposure or other contact or irritation. No swelling of the joints. At this time I would like her to monitor more closely the pattern, to clarify any associations as we discussed, with reassessment at follow-up. Consideration of rheumatologic evaluation if concerns in that regard. Other constipation 12/27/2021 Assessment & Plan (10/28/2023 5:10 PM EDT): Modest and improving pattern which is somewhat waxing waning, currently doing better with previous fiber and probiotic. Recommend resumption of likely long-term use. Continue good hydration. Advise any worsening. Assessment & Plan (02/07/2022 1:25 PM EDT): Modest and improving pattern which is somewhat waxing waning with benefit of fiber and probiotic supplementation. Continue good hydration. Advise any worsening Assessment & Plan (12/27/2021 1:32 PM EDT): Modest pattern, waxing and waning, with a very poor diet and the patient. Very minimal fruits and vegetables. Recommend improve diet, add supplemental fiber and probiotic. Encourage good hydration. Advise if not improving. Insomnia due to medical condition 12/27/2021 Assessment & Plan (10/28/2023 5:08 PM EDT): Modest intermittent but persisting pattern as assessed 08/09/2023, becoming more problematic. Good response to initiation of amitriptyline 25 mg at nighttime, tolerating well without any grogginess, she is transition now to using about half the time still benefit. Continue pattern unchanged. We could decrease the dose to 10 mg dosing if she had some morning time sedation. Continue good sleep hygiene. Advise concerns. Assessment & Plan (08/09/2023 11:31 AM EDT): Relatively moderate intermittent pattern, which has become a bit more persistent. She does feel that sometimes anxiousness and thoughts in her head have trouble relaxing nighttime to contribute but a lot of this seems to be more now developed as a pattern behavior. She would be interested in medicine try to help calm initiate amitriptyline 25 mg at nighttime, caution headache, mental fogginess. We could decrease the dose to 10 mg dosing if she had some morning time sedation. Continue good sleep hygiene. Reassess at 3-month follow-up complete physical exam. Advise concerns. Assessment & Plan (02/07/2022 1:25 PM EDT): Relatively moderate intermittent pattern, which we have discussed sleep hygiene and the association to mood difficulties. She feels she is doing a little better in this regard. I reinforced again good sleep hygiene, consider amitriptyline in future. Assessment & Plan (12/27/2021 1:32 PM EDT): Intermittent pattern, difficulty getting to sleep and sometimes waking up more so, timing very much coincides with mood difficulties. Recommend melatonin as needed, at this time I have also spoken regarding improved sleep hygiene. Reassess at follow-up, patient is not desiring prescription medication, we could consider amitriptyline in future. Routine general [facility] exam [facility] 12/27/2021 Assessment & Plan (10/28/2023 5:11 PM EDT): Last screening blood work 12/27/2021 including negative hepatitis C virus screening. Repeat blood work 10/28/2023 with management results. Pap smears still needs to be scheduled through gynecology. Mammogram normal 12/28/2021, patient needs to reschedule and plans to do so. Colonoscopy scheduled 02/07/2022 but never done, Cologuard ordered 10/28/2023, understanding if it were positive she would then be recommended to have colonoscopy. Patient potentially agreeable to pneumococcal 20 valent vaccine and Tdap vaccine but deferred as she is going on a trip soon but will plan to potentially obtain afterwards. Assessment & Plan (02/07/2022 1:26 PM EDT): Blood work completed 12/27/2021. Pap smears still needs to be scheduled through gynecology. Mammogram normal 12/28/2021. Colonoscopy scheduled 02/07/2022. Patient declines pneumonia vaccination in context of smoking history and flu vaccination. Assessment & Plan (12/27/2021 1:37 PM EDT): Blood work ordered, mammogram scheduled through [facility]. Patient offered Tdap and flu vaccine, she declines. She also declines COVID vaccination. Resolved Problems Problem Noted Date Diagnosed Date Resolved Date Generalized anxiety disorder 12/27/2021 08/09/2023 Assessment & Plan (03/29/2022 12:37 PM EST): Comorbid with depression, please refer to that assessment and plan for details Assessment & Plan (02/07/2022 1:24 PM EDT): Comorbid depression, refer to assessment plan of depression for that detail Assessment & Plan (12/27/2021 1:31 PM EDT): Comorbid with depression, please refer to that assessment and plan for details. Encounters Date Type Department Care Team Description 10/23/2024 11:30 AM EDT Office Visit [facility] [address] [place] [id number] Seivers, Marichuy W, WATER SYSTEMS ENGINEER MARJAN (obstructive sleep apnea) (Primary Dx) 10/23/2024 Patient rounding ([facility] only) [facility] [address] [place] [phone] Marichuy Matthews APRN 10/23/2024 Travel 09/11/2024 11:30 AM EDT Office Visit [facility] [address] [place] [phone] Marichuy Matthews, WATER SYSTEMS ENGINEER Syncope and collapse (Primary Dx); Palpitation; Mixed hyperlipidemia; Hypersomnia; Abnormal EKG; Subaortic membrane 09/11/2024 Travel 09/08/2024 5:00 AM EDT Outside Facility Service [facility] [address] [phone] Hanna Pozo MD Abnormal echocardiogram; Syncope and collapse 08/21/2024 2:30 PM EDT Ancillary Procedure [facility] [address] [phone] Syncope and collapse 08/21/2024 Travel from Last 3 Months Family History Medical History Relation Name Comments Heart disease Father Hypertension Father Kidney disease Father Lupus Mother Relation Name Status Comments Father Mother Social History Tobacco Use Types Packs/Day Years Used Date Smoking Tobacco: Former Cigarettes Smokeless Tobacco: Never Tobacco Cessation:Counseling Given: Not Answered Alcohol Use Standard Drinks/Week Comments Not Currently [...] Pulse 76 10/23/2024 11:52 AM EDT Temperature 37.2 C (98.9 F) 10/28/2023 2:02 PM EDT Respiratory Rate 18 08/09/2023 10:53 AM EDT Oxygen Saturation 98% 10/23/2024 11:52 AM EDT Inhaled Oxygen Concentration - - Weight 83 kg (183 lb) 10/23/2024 11:52 AM EDT Height 165.1 cm (5' 5 ) 10/23/2024 11:52 AM EDT Body Mass Index 30.45 10/23/2024 11:52 AM EDT Plan of Treatment Upcoming Encounters Date Type Department Care Team (Late st Contact Info) Description 12/18/2024 10:30 AM EDT Office Visit [facility] [address] [place] [address] SeMarichuy somers, WATER SYSTEMS ENGINEER [address] [place] [address] [place] [address] Health Maintenance Due Date Last Done Comments Annual Gynecologic Pelvic and Breast Exam 1975 Pneumococcal Vaccine 0-49 (1 of 2 - PCV) 1994 TDAP/TD VACCINES (1 - Tdap) 1994 PAP SMEAR 1996 COLON CANCER SCREENING 5 YEA R SIGMOIDOSCOPY [address] COLONOGRAPHY 2020 FECAL OCCULT BLOOD TEST 2020 FIT Testing (1 year) 2020 COVID-19 Vaccine ( - season) 2023 MAMMOGRAM 12/29/2023 12/28/2021 ANNUAL PHYSICAL 10/27/2024 10/28/2023 LIPID PANEL 10/27/2024 10/28/2023, 12/27/2021 INFLUENZA VACCINE 01/27/2025 COLOGUARD 11/28/2026 11/29/2023 COLORECTAL CANCER SCREENING 11/28/2026 HEPATITIS C SCREENING Completed 12/27/2021 Procedures Procedure Name Priority Date/Time Associated Diagnosis Comments POLYSOMNOGRAPHY 4 OR MORE PARAMETERS Routine 10/08/2024 Hypersomnia ECHO COMPLETE W/ DOPPLER AND COLOR FLOW Routine 08/21/2024 2:33 PM EDT Syncope and collapse COLOGUARD Routine 11/29/2023 9:18 PM EDT Colon cancer screening LIPID PANEL Routine 10/28/2023 2:46 PM EDT Routine general medical examination at a health care facility MAMMO SCREENING DIGITAL TOMOSYNTHESIS BILATERAL W CAD Routine 12/28/2021 Routine general medical examination at a health care facility HEPATITIS C ANTIBODY Routine 12/27/2021 11:42 AM EDT Routine general medical examination at a [facility] facility from Last 3 Months or Most Recently Relevant to Health Maintenance Results * Polysomnography 4 or More Parameters (10/08/2024) us Marichuy Rox[facility] ORDERABLES Marisol lemons Result SLEEP MEDICINE * ECHO COMPLETE W/ DOPPLER AND COLOR FLOW (08/21/2024 2:33 PM EDT) LVIDd 4.6 cm LVIDs 2.39 cm IVSd 1.18 cm LVPWd 1.06 cm FS 47.9 % IVS/LVPW 1.11 cm ESV(cubed) 13.7 ml LV Sys Vol (BSA corrected) 15.7 cm2 EDV(cubed) 96.7 ml LV Mcpherson Vol (BSA corrected) 53.1 cm2 LV mass(C)d 185.2 grams LVOT area 3.5 cm2 LVOT diam 2.10 cm EDV(MOD-sp2) 95.6 ml EDV(MOD-sp4) 99.3 ml ESV(MOD-sp2) 25.3 ml ESV(MOD-sp4) 29.3 ml SV(MOD-sp2) 70.3 ml SV(MOD-sp4) 70.0 ml SVi(MOD-SP2) 37.6 ml/m2 SVi(MOD-SP4) 37.5 ml/m2 SVi (LVOT) 38.9 ml/m2 EF(MOD-sp2) 73.5 % EF(MOD-sp4) 70.5 % MV E max zachery 71.9 cm/sec MV A max zachery 61.8 cm/sec MV dec time 0.20 sec MV E/A 1.16 IVRT 99.0 ms LA ESV Index (BP) 18.2 ml/m2 Med Peak E' Zachery 9.3 cm/sec Lat Peak E' Zachery 11.1 cm/sec TR max zachery 190.0 cm/sec Avg E/e' ratio 7.05 SV(LVOT) 72.7 ml RVIDd 3.0 cm RV Base 3.7 cm RV Mid 2.9 cm RV Length 7.4 cm TAPSE (>1.6) 1.75 cm RV S' 12.0 cm/sec LA dimension (2D) 3.2 cm LV V1 max 121.0 cm/sec LV V1 max PG 5.9 mmHg LV V1 mean PG 3.0 mmHg LV V1 VTI 21.0 cm Ao pk zachery 169.0 cm/sec Ao max PG 11.7 mmHg Ao mean PG 5.0 mmHg Ao V2 VTI 26.9 cm LESTER(I,D) 2.7 cm2 Dimensionless Index 0.78 (DI) MV max PG 1.99 mmHg MV mean PG 1.00 mmHg MV V2 VTI 19.2 cm MV P1/2t 90.2 msec MVA(P1/2t) 2.44 cm2 MVA(VTI) 3.8 cm2 MV dec slope 227.0 cm/sec2 TR max PG 14.4 mmHg PA V2 max 86.0 cm/sec Ao root diam 3.4 cm Sinus 3.4 cm RVSP(TR) 17 mmHg RAP systole 3 mmHg Anatomical Region Laterality Modality Ultrasound Narrative 08/25/2024 11:46 AM EDT Left ventricular ejection fraction appears to be 66 - 70%. Left ventricular wall thickness is consistent with hypertrophy. Possible subaortic membrane without obstruction, recommend correlation with WOJCIECH or CMRI Systolic anterior motion of the anterior mitral leaflet is present. Estimated right ventricular systolic pressure from tricuspid regurgitation is normal (<35 mmHg). Left Ventricle Left ventricular ejection fraction appears to be 66 - 70%. Normal left ventricular cavity size noted. Left ventricular wall thickness is consistent with hypertrophy. All left ventricular wall segments contract normally. Left ventricular diastolic function was indeterminate. Right Ventricle Normal right ventricular cavity size, wall thickness, systolic function and septal motion noted. Left Atrium Normal left atrial size and volume noted. Right Atrium Right atrium not well visualized. Inferior vena cava not well visualized. Mitral Valve Mitral annular calcification is present. Systolic anterior motion of the anterior mitral leaflet is present with a gradient not present. Trace mitral valve regurgitation is present. Tricuspid Valve The tricuspid valve is structurally normal with no significant stenosis present. Trace tricuspid valve regurgitation is present. Estimated right ventricular systolic pressure from tricuspid regurgitation is normal (<35 mmHg). Aortic Valve The aortic valve is structurally normal with no stenosis present. Trace aortic valve regurgitation is present. Pulmonic Valve The pulmonic valve is structurally normal with no significant stenosis present. There is trace pulmonic valve regurgitation present. Pericardium The pericardium is normal. There is no evidence of pericardial effusion. . Greater Vessels No dilation of the aortic root is present. No dilation of the sinuses of Valsalva is present. Study Quality The study is technically difficult for diagnosis. The quality of the study is limited due to patient body habitus, patient positioning and lung disease. Normal sinus was the predominant rhythm observed during the procedure. Wall Scoring Score Index: 1.00 The left ventricular wall motion is normal. us Marichuy Matthews WATER SYSTEMS ENGINEER CV ECHO ORDERABLES Final Res ult * Cologuard - Stool, Per Rectum (11/29/2023 9:18 PM EDT) Cologuard Negative Negative 12/05/2023 2:30 AM EDT [facility] (CLIA #:[id number]) Comment: NEGATIVE TEST RESULT. A negative Cologuard result indicates a low likelihood that a colorectal cancer (CRC) or advanced adenoma (adenomatous polyps with more advanced pre-malignant features) is present. The chance that a person with a negative Cologuard test has a colorectal cancer is less than 1 in 1500 (negative predictive value >99.9%) or has an advanced adenoma is less than 5.3% (negative predictive value 94.7%). These data are based on a prospective cross-sectional study of 10,000 individuals at average risk for colorectal cancer who were screened with both Cologuard and colonoscopy. (Macarena Lopez al, N Engl J Med 2014;370(14):8266-5864) The normal value (reference range) for this assay is negative. COLOGUARD RE-SCREENING RECOMMENDATION: Periodic colorectal cancer screening is an important part of preventive healthcare for asymptomatic individuals at average risk for colorectal cancer. Following a negative Cologuard result, the [place] [employer] and U.S. Multi-Society Task Force screening guidelines recommend a Cologuard re-screening interval of 3 years. References: [place] [employer] Guideline for Colorectal Cancer Screening: https://www.cancer.org/cancer/zyjkm-npswdi-anmlgy/ufagdgcpv-vbmcfqtmf-kwbsmjg/ac s-rec ommendations.html.; Hussein DK, Majo LOPEZ, Piotr GoddardK, Colorectal Cancer Screening: Recommendations for Physicians and Patients from the U.S. Multi-Society Task Force on Colorectal Cancer Screening , Am J Gastroenterology 2017; 112:1265-0776. TEST DESCRIPTION: Composite algorithmic analysis of stool DNA-biomarkers with hemoglobin immunoassay. Quantitative values of individual biomarkers are not reportable and are not associated with individual biomarker result reference ranges. Cologuard is intended for colorectal cancer screening of adults of either sex, 45 years or older, who are at average-risk for colorectal cancer (CRC). Cologuard has been approved for use by the U.S. FDA. The performance of Cologuard was established in a cross sectional study of average-risk adults aged 50-84. Cologuard performance in patients ages 45 to 49 years was estimated by sub-group analysis of near-age groups. Colonoscopies performed for a positive result may find as the most clinically significant lesion: colorectal cancer [4.0%], advanced adenoma (including sessile serrated polyps greater than or equal to 1cm diameter) [20%] or non- advanced adenoma [31%]; or no colorectal neoplasia [45%]. These estimates are derived from a prospective cross-sectional screening study of 10,000 individuals at average risk for colorectal cancer who were screened with both Cologuard and colonoscopy. (Macarena Lopez al, N Engl J Med 2014;370(14):2237-0085.) Cologuard may produce a false negative or false positive result (no colorectal cancer or precancerous polyp present at colonoscopy follow up). A negative Cologuard test result does not guarantee the absence of CRC or advanced adenoma (pre-cancer). The current Cologuard screening interval is every 3 years. ([place] [employer] and U.S. Multi-Society Task Force). Cologuard performance data in a 10,000 patient pivotal study using colonoscopy as the reference method can be accessed at the following location: www.SensorLogic/results. Additional description of the Cologuard test process, warnings and precautions can be found at www.colEnglishCentralrd.com. Stool specimen (specimen) Specimen from rectum / Unknown 11/29/2023 9:18 PM EDT 12/02/2023 11:20 AM EDT us Gilberto Jacobs MD BODY FLUIDS AND STOOLS ORDERABLE S Final Result [facility] (CLIA #:[id number]) [place] [address], * (ABNORMAL) Lipid Panel (10/28/2023 2:46 PM EDT) Total Cholesterol 174 100 - 199 mg/dL [facility] Triglycerides 140 0 - 149 mg/dL [facility] HDL Cholesterol 45 >39 mg/dL [facility] VLDL Cholesterol Jacob 25 5 - 40 mg/dL [facility] LDL Chol Calc (NIH) 104(H) 0 - 99 mg/dL [facility] Blood Structure of right upper limb / Unknown 10/28/2023 2:46 PM EDT 10/28/2023 Comment:Blood Release to pat i Narrative [facility] ([facility]) - 10/29/2023 1:06 PM EDT Performed at: - [address] [id number] Grass[employer] Organizer: Justino Ferreira PhD, Phone: [phone] us Gilberto Jacobs MD LAB BLOOD ORDERABLES Final Resul t Performing Organization Address City/[facility]/ZIP Co de Phone Number [facility] (AMBULATORY) [address] [place] [address], [facility] [address] [place] [id number], [place] [phone] * Mammo Screening Digital Tomosynthesis Bilateral With CAD (12/28/2021) Anatomical Region Laterality Modality Breast N/A Mammography us Gilberto Jacobs MD IMG MAMMOGRAPHY ORDERABLES Final Result * Hepatitis C Antibody (12/27/2021 11:42 AM EDT) Hep C Virus Ab <0.1 0.0 - 0.9 s/co ratio [facility] Comment: Negative: < 0.8 Indeterminate: 0.8 - 0.9 Positive: > 0.9 HCV antibody alone does not differentiate between previous resolved infection and active infection. The CDC and current clinical guidelines recommend that a positive HCV antibody result be followed up with an HCV RNA test to support the diagnosis of acute HCV infection. [facility] offers Hepatitis C Virus (HCV) RNA, Diagnosis, NORMA (589147) and Hepatitis C Virus (HCV) Antibody with reflex to Quantitative Real-time PCR ([id number]). Blood 12/27/2021 11:4 2 AM EDT 12/27/2021 Comment:Blood Release to francesca Alejandro [facility] (AMBULATORY) - 12/28/2021 1:06 PM EDT Performed at: - [address] [id number] [employer] Organizer: Justino Ferreira PhD, Phone: [phone] Gilberto Jacobs MD LAB BLOOD ORDERABLES Final Resul t [facility] (AMBULATORY) [address] [place] [address], [facility] [address] [place] [address], from Last 3 Months or Most Recently Relevant to Health Maintenance Insurance [facility] MEDICA[facility] Care Teams Mine Safety Engineer Relationship Specialty Start Date End Date Xochitl Johnson APRN [address] [place] [address] [place] [address] PCP - General Nurse Practitioner 07/22/24
--- OUTSIDE RECORDS SUMMARY | 2024-11-20 08:46 | XMS_ITS | Encounter Summary ---
[facility] [address] [place] [address] Care Team Providers Care Dependency Case Manager Name Role Phone Xochitl Johnson FILOMENA Primary Care Provi kaylie Encounter Details Date Type Department Care Team (Late st Contact Info) Description 10/23/2024 Patient [place] [place] [facility] [address] [place] [address] Marichuy Matthews APRN [address] [place] [address] [place] [address] Social History Tobacco Use Types Packs/Day Years [...] on file documented as of this encounter Progress Notes * Mitesh Bone RegSched Rep - 10/23/2024 2:44 PM EDT ..My name is Fariba Gannon and I am the Rectangular Tank Cooper for [facility]. I would like to thank you for being a loyal patient. If you do not mind I would like to ask you a few questions about your recent visit with us. Please feel free to reply if you wish to provide us with feedback on your first visit with our practice. First, could you tell me what went well with your recent visit? Secondly, we are always looking for ways to make our patients' experiences even better. Do you haveany recommendations on ways we may improve? Finally, overall were you satisfied with your first visit to us as a [facility]? In the next few days, you will be receiving a Patient Experience Survey. Thank you for taking the time to answer a few questions today. I hope you have a good day. documented in this encounter Plan of Treatment Upcoming Encounters Date Type Department Care Team (Late st Contact Info) Description 12/18/2024 10:30 AM EDT Office Visit [facility] [address] [place] [address] Marichuy Matthews APRN [address] [place] [address] documented as of this encounter Visit Diagnoses Not on filedocumented in this encounter Care Teams Dependency Case Manager Relationship Specialty Start Date End Date Xochitl Johnson APRN [address] [place] [address] PCP - General Nurse Practitioner 07/22/24 documented as of this encounter
[2024-11-20 08:51] VITALS: BMI 29.0
[2024-11-20 09:18] LABS: Urine Pregnancy, HCG Qual. Negative (Negative)
[2024-11-20 09:24] VITALS: BP 139/87; PULSE 62; RESP 16; O2SAT 100
[2024-11-20 09:27] LABS: Anion Gap 12.7 mEq/L (5-15); Blood Urea Nitrogen 14 mg/dl (7-17); Calcium 9.7 mg/dl (8.4-10.2); Carbon Dioxide 25 mmol/L (22.0-30.0); Chloride 106 mmol/L (98-107); Creatinine Clearance Estimated 88 mL/min (50-200); Creatinine,Serum 1.00 mg/dl (0.52-1.04); Estimated Glomerular Filt Rate 59 ml/min (>60); GFR (African American) 71 ML/MIN (>60); Glucose 107 mg/dl (74-100); Potassium 3.7 mmoL/L (3.5-5.1); Sodium 140 mmol/L (136-145)
[2024-11-20 09:36] VITALS: BP 135/71; PULSE 71; RESP 16; O2SAT 94
[2024-11-20 09:39] VITALS: BP 107/64; PULSE 51; RESP 16; O2SAT 97
[2024-11-20 09:42] VITALS: BP 111/67; PULSE 55; RESP 16; O2SAT 99
[2024-11-20] MEDS: 0.9 % SODIUM CHLORIDE 50 ML VIAL IV (09:44)
[2024-11-20] MEDS: SODIUM CHLORIDE 0.9% 10ML SYR (RAD ONLY) 10 ML IV (09:45)
[2024-11-20] MEDS: IOPAMIDOL-370 (76%);100ML BOTTLE 85 ML IV (09:45)
[2024-11-20 09:53] VITALS: BP 129/77; PULSE 59; RESP 16; O2SAT 99
--- NOTE | 2024-11-20 10:00 | CT_ITS ---
APPROVED REPORT Commercial Center Manager: CLINICAL INDICATION Chest Pain TECHNIQUE Image Acquisition: A 128 slice MDCT scanner ([employer] Feed[employer] View) was used for data acquisition. A noncontrast coronary calcium scan was performed. A CT attenuation threshold of 130 Hounsfield units (HU) was used for the detection of calcium in contiguous voxels of 1 sq mm in area to be counted as individual lesions. Bolus tracking in the ascending aorta with a threshold of 180 HU was performed. Immediately afterwards, ECG synchronized cardiac CT was then performed from the cardiac base to apex using retrospective gating with ECG tube current modulation. A total of 85 mL of Isovue 370 mg/mL contrast medium was administered at 5 mL/sec followed by a saline flush using a biphasic injection protocol. A tube voltage of 120 KVp was used. The patient received no medications prior to the cardiac CT. The average heart rate at the time of acquisition was 56 bpm and regular. Image Reconstruction Transaxial images were reconstructed at 0.67 mm slide thickness. Data was reviewed interactively on an advanced workstation capable of 2 and 3-dimensional displays in all conventional reconstruction formats, including multiplanar reformations, maximum intensity projections, curved multiplanar reformations, and volume rendered reconstructions. When applicable, selected routine images describing the relevant coronary anatomy and pathology were saved and sent to PACS. Complications None Technical Quality Overall image quality was good. Coronary artery opacification was adequate. Total DLP (Dose-Length Product) is 1746.4 mGy-cm. The reported value represents the total of one or more individual components during the CT acquisition of this date and at this time, and as such, the same value may appear in more than one CT report depending on the interpreting/reporting physicians. COMPARISON None FINDINGS CT Coronary Calcium Scoring LMA (Left Main Artery) = 0 LAD (Left Anterior Descending) = 0 LCX (Left Coronary Circumflex) = 0 RCA (Right Coronary Artery) = 0 Total Calcium Score = 0 using the AJ-130 method. The interpretation of the calcium heart score is based on the following continuum*: 0 = no calcified plaque detected (risk of coronary artery disease is very low ??? less than 5%) 1-10 = calcium detected in extremely minimal levels (risk of coronary diseases is still low ??? less than 10%) 11-100 = mild levels of plaque detected with certainty (mild or minimal narrowing of heart arteries is likely) 101-400 = definite,at least moderate levels of plaque detected (relatively high risk of a heart attack within 3-5 years) >401-999 = extensive levels of plaque detected (high risk of heart attack, high levels of vascular disease are present, high likelihood of at least one significant coronary narrowing) *The calcium heart score quantifies the burden of coronary calcification/plaque in the coronary arteries. The calcium heart score is not able to evaluate the presence or burden of non-calcified (i.e. soft) plaque. There is no identifiable calcification in the aortic valve, mitral annulus or mitral valve, pericardium, or myocardium. Coronary CT Angiography The coronary arterial system is right dominant. Quantitative Stenosis Grading: Left Main (LM): The left main originates normally from the left sinus of Valsalva. The LM bifurcates into the left anterior descending artery and left circumflex artery. The LM is patent with no evidence of atherosclerosis. Left Anterior Descending (LAD) and Diagonal Branches: The LAD gives off 0 diagonal branch(es). The LAD and its branches are patent with no evidence of atherosclerosis. There is no evidence of LAD-myocardial bridge. Left Circumflex (LCX) and Obtuse Marginals (OM): The LCX gives off 1 Obtuse Marginal (OM) branch(es). The LCX and its branches are patent with no evidence of atherosclerosis. Right Coronary Artery (RCA): The RCA originates normally from the right sinus of Valsalva. The RCA gives off a posterior descending artery (PDA) and posterolateral (PL) branches. The RCA and its branches are patent with no evidence of atherosclerosis. Non-Coronary Cardiac Findings: Analysis of the left ventricular (LV) structure and function was performed after 3-D reconstruction of the LV from axial images, with user-corrected automatic contouring for assessment of LV volumes and user-defined reconstruction from oblique planes for measurement of 3-D cardiac structure and function. -The left ventricle systolic function is normal. -There is no left atrial appendage filling defect. Two right pulmonary veins and two left pulmonary veins drain normally into the left atrium. -No pericardial thickening or calcification. -Central and branch pulmonary arteries in the [id number] are unremarkable. -Thoracic aorta within the visualized thoracic aortic-branches in the [id number] is unremarkable. Extracardiac Structures No significant extra-cardiac findings. Note, however, that this study is focused on the cardiac findings. IMPRESSION -No coronary calcification with an Agatston score = 0 using the AJ-130 method. -No evidence of significant flow-limiting atherosclerosis of the coronary arteries. -CAD-RADS 0. Management recommendations per ACC/AHA guidelines*, as clinically appropriate. *Recommendations: CAD RADS 0: Reassurance. Consider non-atherosclerotic causes of chest pain. CAD RADS 1: Consider non-atherosclerotic causes of chest pain. Consider preventive therapy and risk factor modification. CAD RADS 2: Consider non-atherosclerotic causes of chest pain. Consider preventive therapy and risk factor modification, particularly for patients with nonobstructive plaque in multiple segments. CAD RADS 3: Consider further functional testing. Consider symptom-guided anti-ischemic and preventive pharmacotherapy as well as risk factor modification per published guideline statements. CAD RADS 4A: Consider further functional testing or invasive coronary angiography with revascularization per published guideline statements. Consider symptom-guided anti-ischemic and preventive pharmacotherapy as well as risk factor modification per published guideline statements. CAD RADS 4B: Invasive coronary angiography recommended with revascularization per published guideline statements. Consider symptom-guided anti-ischemic and preventive pharmacotherapy as well as risk factor modification per published guideline statements. CAD RADS 5: Consider invasive angiography and/or viability assessment with revascularization per published guideline statements. Consider symptom-guided anti-ischemic and preventive pharmacotherapy as well as risk factor modification per published guideline statements. CRITICAL RESULT None COMMUNICATION Per this written report The coronary and cardiac findings of this CCTA were reviewed, reported, and signed by Osman Garcia MD (Resort Manager) Conclusion Electronically signed by : Debbie Garcia MD 11/22/2024 19:02:21
== END 2024-11-20 10:00 | disposition home or self-care (01) ==
PROVIDERS: PCP Nurse Practitioner Family; Visit Provider Nurse Practitioner Family
DX: I51.7 Cardiomegaly (principal); R55 Syncope and collapse
CPT/HCPCS: 75574; 80048; 81025; Q9967